=== PATIENT | female | born 1955 | race Caucasian/White ===

== ENCOUNTER → 2016-08-16 | Outpatient (REF) | payer BC, MEDICARE ==
[~2016-08-16] MED LIST: AMLO10TA2 PO; ASPI1TAB PO; ATOR1TAB19 PO; LISI-538 PO; LITH45TASA PO; QUET1TAB8 PO; WOMETAB4 PO
[2016-08-16 13:22] LABS: ALBUMIN 3.8 GM/DL (3.2-5.2); ALBUMIN/GLOBULIN RATIO 1.03 (1.00-1.93); ALKALINE PHOSPHATASE 101 U/L (45-117); ALT/SGPT 16 U/L (12-78); ANION GAP 8 MEQ/L (8-16); AST/SGOT 12 U/L (15-37); BILIRUBIN,TOTAL 0.3 MG/DL (0.2-1.0); BLOOD UREA NITROGEN 8 MG/DL (7-18); CALCIUM LEVEL 9.8 MG/DL (8.8-10.2); CARBON DIOXIDE LEVEL 28 MEQ/L (21-32); CHLORIDE LEVEL 104 MEQ/L (98-107); CREATININE FOR GFR 0.88 MG/DL (0.55-1.02); GLOMERULAR FILTRATION RATE > 60.0 (>45); GLUCOSE, FASTING 110 MG/DL (80-110); MAGNESIUM LEVEL 2.1 MG/DL (1.8-2.4); SODIUM LEVEL 140 MEQ/L (136-145); TOTAL PROTEIN 7.5 GM/DL (6.4-8.2)
[2016-08-16 14:10] LABS: LITHIUM LEVEL 1.02 MEQ/L (0.60-1.20)
== END ==
LOC: M LABDRWAD 12:07
PROVIDERS: ATTEND Psychiatry & Neurology Psychiatry
DX: Z51.81 Encounter for therapeutic drug level monitoring (principal); Z79.899 Other long term (current) drug therapy
CPT/HCPCS: 80053; 80061; 80178; 82306; 83735; 84443; G0463

== ENCOUNTER → 2016-08-16 | Outpatient (REF) | payer MEDICARE, BC ==
[2016-08-16 13:29] LABS: ALBUMIN 3.8 GM/DL (3.2-5.2); ALBUMIN/GLOBULIN RATIO 1.06 (1.00-1.93); ALKALINE PHOSPHATASE 101 U/L (45-117); ALT/SGPT 16 U/L (12-78); ANION GAP 5 MEQ/L (8-16); AST/SGOT 10 U/L (15-37); BILIRUBIN,TOTAL 0.3 MG/DL (0.2-1.0); BLOOD UREA NITROGEN 8 MG/DL (7-18); CALCIUM LEVEL 9.9 MG/DL (8.8-10.2); CARBON DIOXIDE LEVEL 28 MEQ/L (21-32); CHLORIDE LEVEL 106 MEQ/L (98-107); CHOLESTEROL LEVEL 239 MG/DL (<200); CREATININE FOR GFR 0.89 MG/DL (0.55-1.02); GLOMERULAR FILTRATION RATE > 60.0 (>45); GLUCOSE, FASTING 103 MG/DL (80-110); POTASSIUM SERUM 4.8 MEQ/L (3.5-5.1); SODIUM LEVEL 139 MEQ/L (136-145); TOTAL PROTEIN 7.4 GM/DL (6.4-8.2); TRIGLYCERIDES LEVEL 212 MG/DL (<150)
== END ==
LOC: M SFHCADAM 08:34
PROVIDERS: ATTEND Physician Assistant Medical
DX: E78.2 Mixed hyperlipidemia (principal); E55.9 Vitamin D deficiency, unspecified

== ENCOUNTER → 2017-06-12 | Outpatient (CLI) | payer BC, MEDICARE | LOC: M WHC 08:53 | DX: Z12.31 Encounter for screening mammogram for malignant neoplasm of breast (principal); Z13.820 Encounter for screening for osteoporosis; M85.80 Other specified disorders of bone density and structure, unspecified site; M81.0 Age-related osteoporosis without current pathological fracture; Z78.0 Asymptomatic menopausal state ==

== ENCOUNTER → 2017-06-13 | Outpatient (REF) | payer BC, MEDICARE ==
[2017-06-13 12:48] LABS: BASO # 0.1 10^3/uL (0.0-0.2); BASO % 1.1 % (0.0-1.0); EOS # 0.2 10^3/uL (0.0-0.50); EOS % 3.6 % (0.0-3.0); HEMATOCRIT 40.6 % (36.0-47.0); HEMOGLOBIN 12.5 g/dl (12.0-16.0); IMMATURE GRANULOCYTE % 0.2 % (0-3.0); LYMPH # 1.9 10^3/uL (1.5-4.5); LYMPH % 29.3 % (24.0-44.0); MEAN CORPUSCULAR HEMOGLOBIN 31.1 pg (27.0-33.0); MEAN CORPUSCULAR HGB CONC 30.8 g/dl (32.0-36.5); MONO # 0.4 10^3/uL (0.0-0.8); MONO % 6.5 % (0.0-5.0); NEUTROPHILS # 3.9 10^3/uL (1.8-7.7); NEUTROPHILS % 59.3 % (36.0-66.0); PLATELET COUNT, AUTOMATED 317 10^3/uL (150-450); RED BLOOD COUNT 4.02 10^6/uL (4.00-5.40); RED CELL DISTRIBUTION WIDTH 12.7 % (11.5-14.5); WHITE BLOOD COUNT 6.6 10^3/uL (4.0-10.0)
[2017-06-13 13:04] LABS: TOTAL 25(OH) VITAMIN D 35.7 NG/ML (30.0-100.0)
[2017-06-13 13:16] LABS: ALBUMIN 4.2 GM/DL (3.2-5.2); ALBUMIN/GLOBULIN RATIO 1.17 (1.00-1.93); ALKALINE PHOSPHATASE 98 U/L (45-117); ALT/SGPT 23 U/L (12-78); ANION GAP 5 MEQ/L (8-16); AST/SGOT 13 U/L (7-37); BILIRUBIN,TOTAL 0.3 MG/DL (0.2-1.0); BLOOD UREA NITROGEN 12 MG/DL (7-18); CALCIUM LEVEL 9.7 MG/DL (8.8-10.2); CARBON DIOXIDE LEVEL 30 MEQ/L (21-32); CHLORIDE LEVEL 109 MEQ/L (98-107); CHOLESTEROL LEVEL 253 MG/DL (<200); CHOLESTEROL RISK RATIO 4.438 (<5); CREATININE FOR GFR 0.76 MG/DL (0.55-1.30); GLOMERULAR FILTRATION RATE > 60.0 (>45); GLUCOSE, FASTING 92 MG/DL (70-100); HDL CHOLESTEROL 57 MG/DL (>40); LDL CHOLESTEROL 142.6 MG/DL (<100); NON-HDL-C 196 MG/DL; POTASSIUM SERUM 3.9 MEQ/L (3.5-5.1); SODIUM LEVEL 144 MEQ/L (136-145); TOTAL PROTEIN 7.8 GM/DL (6.4-8.2); TRIGLYCERIDES LEVEL 267 MG/DL (<150)
[2017-06-13 13:24] LABS: LITHIUM LEVEL 0.92 MEQ/L (0.60-1.20)
== END ==
LOC: M SFHCADAM 08:02
DX: E55.9 Vitamin D deficiency, unspecified (principal); M81.0 Age-related osteoporosis without current pathological fracture; E78.2 Mixed hyperlipidemia; F31.9 Bipolar disorder, unspecified
CPT/HCPCS: 80178

== ENCOUNTER → 2017-12-02 | Outpatient (CLI) | payer BC, MEDICARE | LOC: M ADAMS 14:45 | DX: M81.0 Age-related osteoporosis without current pathological fracture (principal) | CPT/HCPCS: 36415 ==

== ENCOUNTER → 2017-12-02 | Outpatient (REF) | payer BC, MEDICARE ==
[2017-12-02 19:44] LABS: ANION GAP 8 MEQ/L (8-16); BLOOD UREA NITROGEN 8 MG/DL (7-18); CALCIUM LEVEL 9.1 MG/DL (8.8-10.2); CARBON DIOXIDE LEVEL 26 MEQ/L (21-32); CHLORIDE LEVEL 107 MEQ/L (98-107); CREATININE FOR GFR 0.94 MG/DL (0.55-1.30); GLOMERULAR FILTRATION RATE > 60.0 (>45); GLUCOSE, FASTING 97 MG/DL (70-100); POTASSIUM SERUM 4.2 MEQ/L (3.5-5.1); SODIUM LEVEL 141 MEQ/L (136-145)
== END ==
LOC: M LAB REF 19:15
DX: M81.0 Age-related osteoporosis without current pathological fracture (principal)

== ENCOUNTER 2017-12-09 12:50 | Outpatient (CLI) | payer BC, MEDICARE ==
[2017-12-09] MEDS: ZOLEDRONIC ACID 5 MG in APPROPRIATE DILUENT 1 EA IV (13:31)
== END 2017-12-09 14:20 | disposition home or self-care (01) ==
LOC: M INFU 12:50
DX: M81.0 Age-related osteoporosis without current pathological fracture (principal); Z88.2 Allergy status to sulfonamides; Z88.1 Allergy status to other antibiotic agents; Z79.899 Other long term (current) drug therapy; Z79.82 Long term (current) use of aspirin
CPT/HCPCS: J3489

== ENCOUNTER → 2018-01-25 | Outpatient (CLI) | payer BC, MEDICARE ==
[2018-01-25 17:49] LABS: ANION GAP 4 MEQ/L (8-16); BLOOD UREA NITROGEN 8 MG/DL (7-18); CALCIUM LEVEL 9.4 MG/DL (8.8-10.2); CARBON DIOXIDE LEVEL 29 MEQ/L (21-32); CHLORIDE LEVEL 109 MEQ/L (98-107); CREATININE FOR GFR 0.85 MG/DL (0.55-1.30); GLOMERULAR FILTRATION RATE > 60.0 (>45); GLUCOSE, FASTING 111 MG/DL (70-100); POTASSIUM SERUM 4.3 MEQ/L (3.5-5.1); SODIUM LEVEL 142 MEQ/L (136-145)
== END ==
LOC: M ADAMS 11:24
DX: M81.0 Age-related osteoporosis without current pathological fracture (principal)
CPT/HCPCS: 80048

== ENCOUNTER → 2018-03-22 | Outpatient (CLI) | payer BC, MEDICARE ==
[2018-03-22 17:46] LABS: ESTIMATED AVERAGE GLUCOSE 88 MG/DL (60-110); HEMOGLOBIN A1c 4.7 %
[2018-03-22 17:51] LABS: ALBUMIN/GLOBULIN RATIO 1.05 (1.00-1.93); ALKALINE PHOSPHATASE 72 U/L (45-117); ALT/SGPT 18 U/L (12-78); ANION GAP 5 MEQ/L (8-16); AST/SGOT 12 U/L (7-37); BILIRUBIN,TOTAL 0.3 MG/DL (0.2-1.0); BLOOD UREA NITROGEN 9 MG/DL (7-18); CALCIUM LEVEL 9.7 MG/DL (8.8-10.2); CARBON DIOXIDE LEVEL 30 MEQ/L (21-32); CHLORIDE LEVEL 105 MEQ/L (98-107); CHOLESTEROL LEVEL 219 MG/DL (<200); CHOLESTEROL RISK RATIO 3.842 (<5); CREATININE FOR GFR 0.72 MG/DL (0.55-1.30); GLOMERULAR FILTRATION RATE > 60.0 (>45); GLUCOSE, FASTING 93 MG/DL (70-100); HDL CHOLESTEROL 57 MG/DL (>40); LDL CHOLESTEROL 116 MG/DL (<100); LITHIUM LEVEL 0.91 MEQ/L (0.60-1.20); NON-HDL-C 162 MG/DL; POTASSIUM SERUM 3.6 MEQ/L (3.5-5.1); SODIUM LEVEL 140 MEQ/L (136-145); TOTAL PROTEIN 7.8 GM/DL (6.4-8.2); TRIGLYCERIDES LEVEL 230 MG/DL (<150)
== END ==
LOC: M ADAMS 12:53
DX: Z79.899 Other long term (current) drug therapy (principal)
CPT/HCPCS: 80178

== ENCOUNTER → 2019-01-10 | Outpatient (CLI) | payer BC, MEDICARE ==
[~2019-01-10] MED LIST changes: -AMLO10TA2 PO; +AMLO10TA5 PO; -ASPI1TAB PO; +ASPI81TA26 PO
== END ==
LOC: M ADAMS 11:22
PROVIDERS: ATTEND Physician Assistant Medical
DX: E78.2 Mixed hyperlipidemia (principal); E55.9 Vitamin D deficiency, unspecified; F17.200 Nicotine dependence, unspecified, uncomplicated; I10 Essential (primary) hypertension

== ENCOUNTER → 2019-01-10 | Outpatient (REF) | payer BC, MEDICARE ==
[2019-01-10 17:16] LABS: BASO # 0.1 10^3/uL (0.0-0.2); BASO % 0.9 % (0.0-1.0); EOS # 0.2 10^3/uL (0.0-0.5); EOS % 3.3 % (0.0-3.0); HEMATOCRIT 39.3 % (36.0-47.0); LYMPH # 2.9 10^3/uL (1.5-5.0); LYMPH % 41.6 % (24.0-44.0); MEAN CORPUSCULAR HEMOGLOBIN 31.7 pg (27.0-33.0); MEAN CORPUSCULAR HGB CONC 30.5 g/dl (32.0-36.5); MEAN CORPUSCULAR VOLUME 103.7 fl (80.0-96.0); MONO # 0.6 10^3/uL (0.0-0.8); MONO % 8.8 % (0.0-5.0); NEUTROPHILS # 3.1 10^3/uL (1.5-8.5); NEUTROPHILS % 45.1 % (36.0-66.0); PLATELET COUNT, AUTOMATED 325 10^3/uL (150-450); RED BLOOD COUNT 3.79 10^6/uL (4.00-5.40)
[2019-01-10 17:23] LABS: ALBUMIN 3.7 GM/DL (3.2-5.2); ALT/SGPT 25 U/L (12-78); BILIRUBIN,TOTAL 0.3 MG/DL (0.2-1.0); BLOOD UREA NITROGEN 8 MG/DL (7-18); CALCIUM LEVEL 9.7 MG/DL (8.8-10.2); CARBON DIOXIDE LEVEL 27 MEQ/L (21-32); CHLORIDE LEVEL 108 MEQ/L (98-107); CHOLESTEROL LEVEL 213 MG/DL (<200); GLOMERULAR FILTRATION RATE > 60.0 (>45); GLUCOSE, FASTING 87 MG/DL (70-100); HDL CHOLESTEROL 59 MG/DL (>40); LDL CHOLESTEROL 106 MG/DL (<100); NON-HDL-C 154 MG/DL; POTASSIUM SERUM 4.3 MEQ/L (3.5-5.1); SODIUM LEVEL 142 MEQ/L (136-145); TOTAL PROTEIN 7.4 GM/DL (6.4-8.2); TRIGLYCERIDES LEVEL 239 MG/DL (<150)
[2019-01-12 09:49] LABS: TOTAL 25(OH) VITAMIN D 40.2 NG/ML (30.0-100.0)
== END ==
LOC: M SFHCADAM 11:03
PROVIDERS: ATTEND Physician Assistant Medical
DX: E55.9 Vitamin D deficiency, unspecified (principal); F17.200 Nicotine dependence, unspecified, uncomplicated; I10 Essential (primary) hypertension; E78.2 Mixed hyperlipidemia

== ENCOUNTER → 2019-02-03 | Outpatient (REF) | payer BC, MEDICARE ==
[2019-02-03 20:00] LABS: BLOOD UREA NITROGEN 9 MG/DL (7-18); CALCIUM LEVEL 9.9 MG/DL (8.8-10.2); CARBON DIOXIDE LEVEL 29 MEQ/L (21-32); CHLORIDE LEVEL 103 MEQ/L (98-107); CREATININE FOR GFR 0.85 MG/DL (0.55-1.30); GLOMERULAR FILTRATION RATE > 60.0 (>45); GLUCOSE, FASTING 89 MG/DL (70-100); POTASSIUM SERUM 4.1 MEQ/L (3.5-5.1); SODIUM LEVEL 136 MEQ/L (136-145)
== END ==
LOC: M LABDRAWC 19:11
PROVIDERS: ATTEND Nurse Practitioner Family
DX: M81.0 Age-related osteoporosis without current pathological fracture (principal)

== ENCOUNTER 2019-02-09 14:56 | Outpatient (CLI) | payer BC, MEDICARE ==
[~2019-02-09] VITALS: Ht 152.4 cm; Wt 54.0 kg
[2019-02-09 15:00] VITALS: BP 146/74
[2019-02-09] MEDS ORDERED: CALC500T25 PO (15:44)
[2019-02-09] MEDS ORDERED: ZOLEDRONIC ACID 5 MG OVER 15 MINUTES IV ONE ×2 (16:00)
[2019-02-09 16:20] VITALS: BP 140/73
== END 2019-02-09 16:20 | disposition home or self-care (01) ==
LOC: M INFU 14:56
PROVIDERS: ATTEND Internal Medicine Endocrinology, Diabetes & Metabolism
DX: M81.0 Age-related osteoporosis without current pathological fracture (principal)
CPT/HCPCS: 96365; J3489

== ENCOUNTER → 2019-04-04 | Outpatient (CLI) | payer BC, MEDICARE ==
[~2019-04-04] MED LIST changes: +CALC500T25 PO
== END ==
LOC: M ADAMS 11:54
PROVIDERS: ATTEND Physician Assistant Medical
DX: F31.30 Bipolar disorder, current episode depressed, mild or moderate severity, unspecified (principal)

== ENCOUNTER 2019-06-23 13:39 | Emergency (ER) | payer BC, MEDICARE ==
[~2019-06-23] VITALS: Ht 152.4 cm; Wt 53.2 kg
[~2019-06-23 13:39] MED LIST changes: +QUET100T2 PO; -QUET1TAB8 PO
[2019-06-23] MEDS ORDERED: ATOR1TAB21 (13:49)
[2019-06-23] MEDS ORDERED: ALEN70TA74 (13:49)
[2019-06-23] MEDS ORDERED: fish oil (13:49)
--- NOTE | 2019-06-23 15:44 | REPVR ---
PROCEDURE INFORMATION: Exam: CT Head Without Contrast Exam date and time: 06/23/2019 3:26 PM Age: 64 years old Clinical indication: Injury or trauma; Fall; Initial encounter; Blunt trauma (contusions or hematomas); Additional info: Fall injury; Headache TECHNIQUE: Imaging protocol: Computed tomography of the head without contrast. Radiation optimization: All CT scans at this facility use at least one of these dose optimization techniques: automated exposure control; mA and/or kV adjustment per patient size (includes targeted exams where dose is matched to clinical indication); or iterative reconstruction. COMPARISON: CT Head without contrast 01/07/2014 1:51 PM FINDINGS: Brain: No intracranial mass, mass effect or midline shift. No acute intracranial hemorrhage. No CT evidence of acute cortical infarct. Mild decreased attenuation in periventricular/centrum semiovale white matter. Ventricles: Ventricles, cisterns, and sulci are normal in size for age. Bones/joints: No calvarial fracture or destructive process. Sinuses: Imaged paranasal sinuses are clear. Mastoid air cells: Mastoid air cells are normally aerated. Orbits: Imaged orbits are unremarkable. Soft tissues: No focal extracranial soft tissue swelling. IMPRESSION: No acute or concerning focal intracranial abnormality. Electronically signed by: Lavelle Coto On 06/23/2019 15:43:56 PM
--- NOTE | 2019-06-23 15:54 | REPVR ---
PROCEDURE INFORMATION: Exam: CT Cervical Spine Without Contrast Exam date and time: 06/23/2019 3:26 PM Age: 64 years old Clinical indication: Injury or trauma; Fall; Initial encounter; Blunt trauma; Additional info: Fall injury; Distracting injury; [facility] + TECHNIQUE: Imaging protocol: Computed tomography images of the cervical spine without contrast. Radiation optimization: All CT scans at this facility use at least one of these dose optimization techniques: automated exposure control; mA and/or kV adjustment per patient size (includes targeted exams where dose is matched to clinical indication); or iterative reconstruction. COMPARISON: No relevant prior studies available. FINDINGS: Vertebrae: No segmental vertebral malalignment. Vertebral body height is maintained at all levels. No acute fracture. No destructive or blastic cervical spine osseous lesion. Discs/Spinal canal/Neural foramina: Intervertebral disc spaces are appropriate for age. Hypertrophic facet arthropathy left C3-C4 with mild neural foraminal stenosis Soft tissues: Soft tissues show no concerning abnormality or asymmetry. Thyroid: Incompletely imaged right thyroid nodule suspected, measuring 15 mm Lungs: Imaged lung apices demonstrate no concerning abnormality. Pleural space: No apical pneumothorax. IMPRESSION: 1. No acute fracture or traumatic segmental cervical malalignment. 2. Mild left neural foraminal stenosis C3-C4 secondary to facet arthropathy. 3. Probable left thyroid nodule, incompletely imaged. Outpatient sonography can be used to follow this. COMMENTS: Consistent with the [employer]'s Incidental Findings Committee white paper (J Am Mihai Radiol 2015): In patients aged 35 years and older with an incidental thyroid nodule equal to or greater than 1.[address], MRI or extrathyroidal US, further evaluation with dedicated thyroid US is recommended for patients with normal life expectancy and without comorbidities. For smaller nodules without suspicious features, no further evaluation or follow up is recommended. Electronically signed by: Lavelle Coto On 06/23/2019 15:54:34 PM
[2019-06-23] MEDS ORDERED: NS 1,000 ML IV ONE ×2 (17:15)
[2019-06-23 17:50] LABS: BASO # 0.1 10^3/uL (0.0-0.2); BASO % 0.5 % (0.0-1.0); EOS # 0.2 10^3/uL (0.0-0.5); EOS % 1.8 % (0.0-3.0); HEMATOCRIT 37.9 % (36.0-47.0); HEMOGLOBIN 12.2 g/dl (12.0-15.5); LYMPH # 2.6 10^3/uL (1.5-5.0); LYMPH % 22.9 % (24.0-44.0); MEAN CORPUSCULAR HEMOGLOBIN 32.1 pg (27.0-33.0); MEAN CORPUSCULAR HGB CONC 32.2 g/dl (32.0-36.5); MEAN CORPUSCULAR VOLUME 99.7 fl (80.0-96.0); MONO # 0.9 10^3/uL (0.0-0.8); MONO % 8.2 % (0.0-5.0); NEUTROPHILS # 7.4 10^3/uL (1.5-8.5); NEUTROPHILS % 66.2 % (36.0-66.0); PLATELET COUNT, AUTOMATED 357 10^3/uL (150-450); WHITE BLOOD COUNT 11.2 10^3/uL (4.0-10.0)
[2019-06-23 18:28] LABS: ALT/SGPT 31 U/L (12-78); BILIRUBIN,DIRECT < 0.1 MG/DL (0.0-0.2); BILIRUBIN,TOTAL 0.2 MG/DL (0.2-1.0); FREE T4 0.85 NG/DL (0.76-1.46)
[2019-06-23 20:40] LABS: CALCIUM LEVEL 10.1 MG/DL (8.8-10.2); CREATININE FOR GFR 1.26 MG/DL (0.55-1.30); GLOMERULAR FILTRATION RATE 45.2 (>45); LITHIUM LEVEL 0.98 MEQ/L (0.60-1.20); POTASSIUM SERUM 3.8 MEQ/L (3.5-5.1)
[2019-06-23 20:48] VITALS: BP 149/72
--- NOTE | 2019-06-24 10:50 | ED PDOC ---
Post-Departure Follow-Up adriano thomason faxed formal report of ct c spine for fu Clara Zhang MD Jun 24, 2019 10:50
--- NOTE | 2019-06-25 06:35 | ECGEPIP ---
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
== END 2019-06-23 20:58 | disposition home or self-care (01) ==
LOC: M ED 13:39
DX: R79.89 Other specified abnormal findings of blood chemistry (principal); E86.0 Dehydration; I10 Essential (primary) hypertension; F31.9 Bipolar disorder, unspecified; Z79.899 Other long term (current) drug therapy; Z79.82 Long term (current) use of aspirin; Z88.1 Allergy status to other antibiotic agents; Z88.2 Allergy status to sulfonamides; Z88.5 Allergy status to narcotic agent; F17.210 Nicotine dependence, cigarettes, uncomplicated

== ENCOUNTER → 2019-06-24 | Outpatient (REF) | payer BC, MEDICARE ==
[~2019-06-24] MED LIST changes: +ALEN70TA74; +ATOR1TAB21; +fish oil
[2019-06-24 13:33] LABS: CALCIUM LEVEL 11.5 MG/DL (8.8-10.2); CREATININE FOR GFR 1.42 MG/DL (0.55-1.30); GLOMERULAR FILTRATION RATE 39.4 (>45); LITHIUM LEVEL 0.81 MEQ/L (0.60-1.20); POTASSIUM SERUM 4.2 MEQ/L (3.5-5.1)
== END ==
LOC: M LABDRWAD 12:41
PROVIDERS: ATTEND Emergency Medicine
DX: Z79.899 Other long term (current) drug therapy (principal)

== ENCOUNTER → 2019-07-02 | Outpatient (REF) | payer BC, MEDICARE ==
[2019-07-02 16:36] LABS: CALCIUM LEVEL 11.2 MG/DL (8.8-10.2); CREATININE FOR GFR 1.25 MG/DL (0.55-1.30); GLOMERULAR FILTRATION RATE 45.6 (>45); POTASSIUM SERUM 4.6 MEQ/L (3.5-5.1)
== END ==
LOC: M SFHCADAM 14:19
PROVIDERS: ATTEND Physician Assistant Medical
DX: E83.52 Hypercalcemia (principal); N17.9 Acute kidney failure, unspecified

== ENCOUNTER → 2019-10-16 | Outpatient (REF) | payer BC, MEDICARE ==
[2019-10-16 14:19] LABS: BASO # 0.1 10^3/uL (0.0-0.2); BASO % 0.7 % (0.0-1.0); EOS # 0.2 10^3/uL (0.0-0.5); EOS % 2.2 % (0.0-3.0); HEMATOCRIT 37.8 % (36.0-47.0); HEMOGLOBIN 11.8 g/dl (12.0-15.5); LYMPH # 2.5 10^3/uL (1.5-5.0); LYMPH % 30.9 % (24.0-44.0); MEAN CORPUSCULAR HEMOGLOBIN 31.3 pg (27.0-33.0); MEAN CORPUSCULAR HGB CONC 31.2 g/dl (32.0-36.5); MEAN CORPUSCULAR VOLUME 100.3 fl (80.0-96.0); MONO # 0.6 10^3/uL (0.0-0.8); MONO % 7.7 % (0.0-5.0); NEUTROPHILS # 4.8 10^3/uL (1.5-8.5); NEUTROPHILS % 58.3 % (36.0-66.0); PLATELET COUNT, AUTOMATED 325 10^3/uL (150-450); RED BLOOD COUNT 3.77 10^6/uL (4.00-5.40); WHITE BLOOD COUNT 8.2 10^3/uL (4.0-10.0)
[2019-10-16 14:30] LABS: ALBUMIN 3.7 GM/DL (3.2-5.2); ALT/SGPT 17 U/L (12-78); BILIRUBIN,TOTAL 0.2 MG/DL (0.2-1.0); BLOOD UREA NITROGEN 12 MG/DL (7-18); CALCIUM LEVEL 10.1 MG/DL (8.8-10.2); CARBON DIOXIDE LEVEL 30 MEQ/L (21-32); CHLORIDE LEVEL 106 MEQ/L (98-107); CHOLESTEROL LEVEL 211 MG/DL (<200); CHOLESTEROL RISK RATIO 3.907 (<5); CREATININE FOR GFR 0.94 MG/DL (0.55-1.30); FREE T4 0.88 NG/DL (0.76-1.46); GLOMERULAR FILTRATION RATE > 60.0 (>45); GLUCOSE, FASTING 89 MG/DL (70-100); HDL CHOLESTEROL 54 MG/DL (>40); LDL CHOLESTEROL 125 MG/DL (<100); NON-HDL-C 157 MG/DL; POTASSIUM SERUM 4.5 MEQ/L (3.5-5.1); SODIUM LEVEL 137 MEQ/L (136-145); TOTAL PROTEIN 7.5 GM/DL (6.4-8.2); TRIGLYCERIDES LEVEL 161 MG/DL (<150)
[2019-10-16 14:32] LABS: TOTAL 25(OH) VITAMIN D 55.1 NG/ML (30.0-100.0)
== END ==
LOC: M SFHCADAM 09:42
PROVIDERS: ATTEND Physician Assistant Medical
DX: E55.9 Vitamin D deficiency, unspecified (principal); E78.2 Mixed hyperlipidemia; E04.1 Nontoxic single thyroid nodule; E83.52 Hypercalcemia

== ENCOUNTER → 2019-10-28 | Outpatient (CLI) | payer BC, MEDICARE ==
[~2019-10-28] MED LIST changes: -AMLO10TA5 PO; +AMLO1TAB25 PO
--- NOTE | 2019-10-28 15:45 | REP ---
THYROID ULTRASOUND: Real-time sonographic evaluation of the thyroid performed. The right lobe measures 4.4 x 1.6 x 1.7 cm and left lobe 5.0 x 1.5 x 1.0 cm. Inferiorly in the right lobe, there is a complex cystic and solid nodule, which measures 2.0 x 1.5 x 1.7 cm. Using ACR TI-RADS criteria, this has a benign appearance and no followup is needed. No other cystic or solid nodule is seen. IMPRESSION: Benign cystic and solid nodule right lobe of the thyroid.
== END ==
LOC: M PLAIMG 10:32
PROVIDERS: ATTEND Physician Assistant Medical
DX: E04.1 Nontoxic single thyroid nodule (principal)

== ENCOUNTER → 2020-09-05 | Outpatient (REF) | payer BC, MEDICARE ==
[~2020-09-05] MED LIST changes: -ALEN70TA74; +ALEN70TA82; -LISI-538 PO; +LISI20TA33 PO
[2020-09-05 12:43] LABS: BASO # 0.1 10^3/uL (0.0-0.2); BASO % 0.6 % (0.0-1.0); EOS # 0.4 10^3/uL (0.0-0.5); HEMATOCRIT 39.1 % (36.0-47.0); HEMOGLOBIN 11.7 g/dl (12.0-15.5); LYMPH # 2.5 10^3/uL (1.5-5.0); MEAN CORPUSCULAR HEMOGLOBIN 30.7 pg (27.0-33.0); MEAN CORPUSCULAR HGB CONC 29.9 g/dl (32.0-36.5); MEAN CORPUSCULAR VOLUME 102.6 fl (80.0-96.0); MONO # 0.5 10^3/uL (0.0-0.8); MONO % 5.7 % (2.0-8.0); NEUTROPHILS # 5.8 10^3/uL (1.5-8.5); NEUTROPHILS % 62.4 % (36.0-66.0); PLATELET COUNT, AUTOMATED 414 10^3/uL (150-450); RED BLOOD COUNT 3.81 10^6/uL (4.00-5.40); WHITE BLOOD COUNT 9.4 10^3/uL (4.0-10.0)
[2020-09-05 13:24] LABS: ALBUMIN 3.2 GM/DL (3.2-5.2); ALT/SGPT 35 U/L (12-78); BILIRUBIN,TOTAL 0.2 MG/DL (0.2-1.0); BLOOD UREA NITROGEN 8 MG/DL (7-18); CALCIUM LEVEL 10.8 MG/DL (8.8-10.2); CARBON DIOXIDE LEVEL 29 MEQ/L (21-32); CHLORIDE LEVEL 109 MEQ/L (98-107); CHOLESTEROL LEVEL 156 MG/DL (<200); CHOLESTEROL RISK RATIO 2.836 (<5); CREATININE FOR GFR 0.92 MG/DL (0.55-1.30); GLOMERULAR FILTRATION RATE > 60.0 (>45); GLUCOSE, FASTING 110 MG/DL (70-100); HDL CHOLESTEROL 55 MG/DL (>40); LDL CHOLESTEROL 61 MG/DL (<100); NON-HDL-C 101 MG/DL; POTASSIUM SERUM 4.8 MEQ/L (3.5-5.1); SODIUM LEVEL 143 MEQ/L (136-145); THYROID STIMULATING HORMONE 0.044 uIU/ML (0.358-3.740); TRIGLYCERIDES LEVEL 200 MG/DL (<150)
== END ==
LOC: M SFHCADAM 08:57
PROVIDERS: ATTEND Physician Assistant Medical
DX: M81.0 Age-related osteoporosis without current pathological fracture (principal); I10 Essential (primary) hypertension; F17.200 Nicotine dependence, unspecified, uncomplicated; F31.9 Bipolar disorder, unspecified; E78.2 Mixed hyperlipidemia

== ENCOUNTER → 2020-09-05 | Outpatient (REF) | payer BC, MEDICARE ==
[2020-09-05 12:49] LABS: HEMOGLOBIN 11.8 g/dl (12.0-15.5); MEAN CORPUSCULAR HGB CONC 30.3 g/dl (32.0-36.5); MEAN CORPUSCULAR VOLUME 102.4 fl (80.0-96.0); PLATELET COUNT, AUTOMATED 402 10^3/uL (150-450); RED BLOOD COUNT 3.81 10^6/uL (4.00-5.40); WHITE BLOOD COUNT 9.5 10^3/uL (4.0-10.0)
[2020-09-05 13:22] LABS: ALBUMIN 3.2 GM/DL (3.2-5.2); ALT/SGPT 35 U/L (12-78); BILIRUBIN,TOTAL 0.3 MG/DL (0.2-1.0); BLOOD UREA NITROGEN 7 MG/DL (7-18); CALCIUM LEVEL 10.8 MG/DL (8.8-10.2); CARBON DIOXIDE LEVEL 32 MEQ/L (21-32); CHLORIDE LEVEL 109 MEQ/L (98-107); CHOLESTEROL LEVEL 157 MG/DL (<200); CHOLESTEROL RISK RATIO 2.754 (<5); CREATININE FOR GFR 0.88 MG/DL (0.55-1.30); GLOMERULAR FILTRATION RATE > 60.0 (>45); GLUCOSE, FASTING 110 MG/DL (70-100); HDL CHOLESTEROL 57 MG/DL (>40); LDL CHOLESTEROL 61 MG/DL (<100); LITHIUM LEVEL 1.27 MEQ/L (0.60-1.20); NON-HDL-C 100 MG/DL; PHOSPHORUS LEVEL 3.8 MG/DL (2.5-4.9); POTASSIUM SERUM 4.8 MEQ/L (3.5-5.1); SODIUM LEVEL 143 MEQ/L (136-145); THYROID STIMULATING HORMONE 0.045 uIU/ML (0.358-3.740); TOTAL PROTEIN 7.1 GM/DL (6.4-8.2); TRIGLYCERIDES LEVEL 196 MG/DL (<150)
== END ==
LOC: M LABDRWAD 12:30
PROVIDERS: ATTEND Nurse Practitioner Psychiatric/Mental Health
DX: F31.30 Bipolar disorder, current episode depressed, mild or moderate severity, unspecified (principal)

== ENCOUNTER → 2020-09-08 | Outpatient (REF) | payer BC, MEDICARE ==
[2020-09-08 12:47] LABS: PERCENT SATURATION 16.2 % (13.2-45.0)
[2020-09-08 13:21] LABS: PTH INTACT 78.4 PG/ML (18.5-88.0)
[2020-09-08 13:38] LABS: FOLATE 18.8 NG/ML
[2020-09-08 13:59] LABS: HEMOGLOBIN A1c 5.1 %
== END ==
LOC: M SFHCADAM 09:28
PROVIDERS: ATTEND Physician Assistant Medical
DX: E83.52 Hypercalcemia (principal); R73.01 Impaired fasting glucose; D64.9 Anemia, unspecified

== ENCOUNTER → 2020-09-15 | Outpatient (REF) | payer BC, MEDICARE ==
[2020-09-15 13:33] LABS: ALBUMIN 3.3 GM/DL (3.2-5.2); BLOOD UREA NITROGEN 11 MG/DL (7-18); CALCIUM LEVEL 10.8 MG/DL (8.8-10.2); CARBON DIOXIDE LEVEL 33 MEQ/L (21-32); CHLORIDE LEVEL 107 MEQ/L (98-107); GLOMERULAR FILTRATION RATE > 60.0 (>45); GLUCOSE, FASTING 103 MG/DL (70-100); LITHIUM LEVEL 0.96 MEQ/L (0.60-1.20); PHOSPHORUS LEVEL 3.6 MG/DL (2.5-4.9); SODIUM LEVEL 141 MEQ/L (136-145); THYROID STIMULATING HORMONE 0.218 uIU/ML (0.358-3.740)
== END ==
LOC: M SFHCADAM 09:42
PROVIDERS: ATTEND Physician Assistant Medical
DX: T56.891A Toxic effect of other metals, accidental (unintentional), initial encounter (principal); E83.52 Hypercalcemia; R79.89 Other specified abnormal findings of blood chemistry

== ENCOUNTER → 2020-09-30 | Outpatient (REF) | payer BC, MEDICARE ==
[2020-09-30 18:17] LABS: ALBUMIN 3.3 GM/DL (3.2-5.2); ALT/SGPT 26 U/L (12-78); BILIRUBIN,TOTAL 0.2 MG/DL (0.2-1.0); BLOOD UREA NITROGEN 9 MG/DL (7-18); CALCIUM LEVEL 9.5 MG/DL (8.8-10.2); CARBON DIOXIDE LEVEL 27 MEQ/L (21-32); CHLORIDE LEVEL 108 MEQ/L (98-107); CREATININE FOR GFR 0.87 MG/DL (0.55-1.30); GLOMERULAR FILTRATION RATE > 60.0 (>45); GLUCOSE, FASTING 104 MG/DL (70-100); LITHIUM LEVEL 0.73 MEQ/L (0.60-1.20); POTASSIUM SERUM 3.9 MEQ/L (3.5-5.1); SODIUM LEVEL 141 MEQ/L (136-145)
== END ==
LOC: M SFHCADAM 15:01
PROVIDERS: ATTEND Physician Assistant Medical
DX: E83.52 Hypercalcemia (principal)

== ENCOUNTER → 2021-04-06 | Outpatient (REF) | payer BC, MEDICARE ==
[2021-04-06 12:50] LABS: BASO # 0.1 10^3/uL (0.0-0.2); EOS # 0.2 10^3/uL (0.0-0.5); EOS % 2.7 % (0.0-3.0); HEMATOCRIT 39.7 % (36.0-47.0); HEMOGLOBIN 12.2 g/dl (12.0-15.5); LYMPH # 1.8 10^3/uL (1.5-5.0); LYMPH % 29.4 % (24.0-44.0); MEAN CORPUSCULAR HEMOGLOBIN 30.8 pg (27.0-33.0); MEAN CORPUSCULAR HGB CONC 30.7 g/dl (32.0-36.5); MEAN CORPUSCULAR VOLUME 100.3 fl (80.0-96.0); MONO # 0.3 10^3/uL (0.0-0.8); MONO % 5.2 % (2.0-8.0); NEUTROPHILS # 3.8 10^3/uL (1.5-8.5); NEUTROPHILS % 61.7 % (36.0-66.0); PLATELET COUNT, AUTOMATED 372 10^3/uL (150-450); RED BLOOD COUNT 3.96 10^6/uL (4.00-5.40); WHITE BLOOD COUNT 6.2 10^3/uL (4.0-10.0)
[2021-04-06 13:31] LABS: ALBUMIN 3.3 GM/DL (3.2-5.2); BILIRUBIN,TOTAL 0.3 MG/DL (0.2-1.0); CALCIUM LEVEL 9.7 MG/DL (8.8-10.2); CHOLESTEROL RISK RATIO 4.509 (<5); CREATININE FOR GFR 1.04 MG/DL (0.55-1.30); FREE T4 0.7 NG/DL (0.76-1.46); GLOMERULAR FILTRATION RATE 56.1 (>45); LITHIUM LEVEL 0.94 MEQ/L (0.60-1.20); MAGNESIUM LEVEL 2.4 MG/DL (1.8-2.4); PERCENT SATURATION 17.7 % (13.2-45.0); THYROID STIMULATING HORMONE 2.39 uIU/ML (0.358-3.740)
[2021-04-06 14:15] LABS: TOTAL 25(OH) VITAMIN D 40.6 NG/ML (30.0-100.0)
[2021-04-06 14:29] LABS: FOLATE 5.5 NG/ML
== END ==
LOC: M SFHCADAM 08:01
PROVIDERS: ATTEND Physician Assistant Medical
DX: E55.9 Vitamin D deficiency, unspecified (principal); F17.200 Nicotine dependence, unspecified, uncomplicated; I10 Essential (primary) hypertension; E78.2 Mixed hyperlipidemia; R73.01 Impaired fasting glucose

== ENCOUNTER → 2022-01-01 | Outpatient (REF) | payer MEDICARE, BC ==
[2022-01-01 17:50] LABS: BASO # 0.1 10^3/uL (0.0-0.2); BASO % 0.6 % (0.0-1.0); EOS # 0.2 10^3/uL (0.0-0.5); EOS % 1.3 % (0.0-3.0); HEMOGLOBIN 12.1 g/dl (12.0-15.5); LYMPH # 2.4 10^3/uL (1.5-5.0); LYMPH % 21.3 % (24.0-44.0); MEAN CORPUSCULAR HEMOGLOBIN 31.3 pg (27.0-33.0); MEAN CORPUSCULAR VOLUME 100.8 fl (80.0-96.0); MONO # 0.8 10^3/uL (0.0-0.8); MONO % 7.2 % (2.0-8.0); NEUTROPHILS # 7.9 10^3/uL (1.5-8.5); NEUTROPHILS % 69.2 % (36.0-66.0); PLATELET COUNT, AUTOMATED 378 10^3/uL (150-450); RED BLOOD COUNT 3.87 10^6/uL (4.00-5.40); WHITE BLOOD COUNT 11.4 10^3/uL (4.0-10.0)
[2022-01-01 18:57] LABS: ALBUMIN 3.5 GM/DL (3.2-5.2); ALT/SGPT 24 U/L (12-78); BILIRUBIN,TOTAL 0.4 MG/DL (0.2-1.0); BLOOD UREA NITROGEN 8 MG/DL (7-18); CALCIUM LEVEL 10.3 MG/DL (8.8-10.2); CARBON DIOXIDE LEVEL 28 MEQ/L (21-32); CHLORIDE LEVEL 105 MEQ/L (98-107); CHOLESTEROL LEVEL 246 MG/DL (<200); CHOLESTEROL RISK RATIO 4.472 (<5); CREATININE FOR GFR 0.98 MG/DL (0.55-1.30); GLOMERULAR FILTRATION RATE > 60.0 (>45); GLUCOSE, FASTING 102 MG/DL (70-100); HDL CHOLESTEROL 55 MG/DL (>40); LDL CHOLESTEROL 151 MG/DL (<100); NON-HDL-C 191 MG/DL; POTASSIUM SERUM 4.2 MEQ/L (3.5-5.1); SODIUM LEVEL 138 MEQ/L (136-145); TOTAL PROTEIN 7.3 GM/DL (6.4-8.2); TRIGLYCERIDES LEVEL 202 MG/DL (<150)
[2022-01-01 19:34] LABS: TOTAL 25(OH) VITAMIN D 51.1 NG/ML (30.0-100.0)
[2022-01-01 20:05] LABS: LITHIUM LEVEL 0.87 MEQ/L (0.60-1.20)
== END ==
LOC: M SFHCADAM 13:54
PROVIDERS: ATTEND Physician Assistant Medical
DX: E78.2 Mixed hyperlipidemia (principal); I10 Essential (primary) hypertension; E55.9 Vitamin D deficiency, unspecified; R73.01 Impaired fasting glucose; M81.0 Age-related osteoporosis without current pathological fracture; F31.9 Bipolar disorder, unspecified

== ENCOUNTER → 2022-01-01 | Outpatient (CLI) | payer MEDICARE, BC | LOC: M ADAMS 14:00 | PROVIDERS: ATTEND Physician Assistant Medical | DX: R91.8 Other nonspecific abnormal finding of lung field (principal); R06.09 Other forms of dyspnea; F17.200 Nicotine dependence, unspecified, uncomplicated ==

== ENCOUNTER → 2022-01-10 | Outpatient (CLI) | payer BC, MEDICARE ==
[~2022-01-10] MED LIST changes: +ISOVUE-370 76% 100ML VIAL As Ordered ONE
== END ==
LOC: M RAD 09:19
PROVIDERS: ATTEND Physician Assistant Medical
DX: J98.11 Atelectasis (principal); R91.8 Other nonspecific abnormal finding of lung field; J43.9 Emphysema, unspecified; R93.89 Abnormal findings on diagnostic imaging of other specified body structures; F17.200 Nicotine dependence, unspecified, uncomplicated

== ENCOUNTER → 2022-01-25 | Outpatient (CLI) | payer BC, MEDICARE ==
[~2022-01-25] MED LIST changes: +ALBU8.5H INH; -ISOVUE-370 76% 100ML VIAL As Ordered ONE; +OMEG10002 PO; +STIO1AER INH
[2022-01-25 13:45] LABS: INR 0.81; PROTHROMBIN TIME 11.6 SECONDS (12.7-14.5)
== END ==
LOC: M CARPUL 11:44
PROVIDERS: ATTEND Internal Medicine Critical Care Medicine
DX: J43.9 Emphysema, unspecified (principal); R06.09 Other forms of dyspnea

== ENCOUNTER → 2022-01-29 | Outpatient (CLI) | payer BC, MEDICARE | LOC: M LABSMTC 11:23 | PROVIDERS: ATTEND Anesthesiology | DX: Z01.812 Encounter for preprocedural laboratory examination (principal); Z20.822 Contact with and (suspected) exposure to COVID-19 ==

== ENCOUNTER 2022-01-31 06:37 | Day surgery (SDC) | payer BC, MEDICARE ==
[~2022-01-31] VITALS: Ht 152.4 cm; Wt 53.5 kg
[2022-01-31] MEDS ORDERED: LR 1,000 ML IV SCH ×2 (07:25→10:40)
[2022-01-31] MEDS ORDERED: dexameTHASONE 4 MG/ML 1ML VIAL (J1100 PER 1MG) As Ordered ONE ×2 (08:50→10:21)
[2022-01-31] MEDS ORDERED: propofoL 200 MG/20 ML VIAL As Ordered ONE (08:50)
[2022-01-31] MEDS ORDERED: ROCURONIUM BROMIDE 50 MG/5 ML VIAL As Ordered ONE (08:50)
[2022-01-31] MEDS ORDERED: ONDANSETRON 4MG 2ML VIAL As Ordered ONE (08:50)
[2022-01-31] MEDS ORDERED: LIDOCAINE 2% 100MG/5ML SDV (FOR ANES.) As Ordered ONE (08:50)
[2022-01-31] MEDS ORDERED: METOCLOPRAMIDE INJ 10MG/2ML VIAL (J2765 PER 1) As Ordered ONE (08:50)
[2022-01-31] MEDS ORDERED: MIDAZOLAM INJ 2MG/2ML VIAL (J2250 PER 1MG) As Ordered ONE ×2 (08:51→11:35)
[2022-01-31] MEDS ORDERED: fentaNYL 100 MCG/2 ML INJECTION As Ordered ONE (08:51)
[2022-01-31] MEDS ORDERED: SUGAMMADEX SODIUM 500 MG/5 ML VIAL (BRIDION) As Ordered ONE (08:53)
[2022-01-31] MEDS ORDERED: ALBUTEROL SULFATE 2.5 MG/0.5 ML INH NEB SOLN INH ONE (09:25)
[2022-01-31] MEDS ORDERED: LIDOCAINE PRES-FREE 2% 10ML AMP NEB ONE (09:25)
[2022-01-31] MEDS ORDERED: CETACAINE SPRAY 5GM As Ordered ONE (10:04)
[2022-01-31] MEDS ORDERED: THROMBIN 5,000 UNITS VIAL As Ordered ONE (10:04)
[2022-01-31] MEDS ORDERED: HYDROMORPHONE HCL 0.5 MG/ 0.5 ML SYRINGE (J1170 PER 1) IV PRN (10:40)
[2022-01-31] MEDS ORDERED: fentaNYL 100 MCG/2 ML INJECTION IV PRN (10:40)
[2022-01-31] MEDS ORDERED: ONDANSETRON 4MG 2ML VIAL IV PRN (10:40)
[2022-01-31] MEDS ORDERED: oxyCODONE 5MG TAB PO PRN (10:40)
[2022-01-31] MEDS ORDERED: ALBUTEROL SULFATE 2.5 MG/0.5 ML INH NEB SOLN NEB ONE (11:05)
[2022-01-31] MEDS ORDERED: MIDAZOLAM INJ 2MG/2ML VIAL (J2250 PER 1MG) IV STA (11:38)
[2022-01-31 12:45] VITALS: BP 135/62
== END 2022-01-31 13:05 | disposition home or self-care (01) ==
LOC: M SDC 06:37
PROVIDERS: ATTEND Internal Medicine Critical Care Medicine
DX: R91.8 Other nonspecific abnormal finding of lung field (principal); J98.11 Atelectasis; J43.9 Emphysema, unspecified; R06.00 Dyspnea, unspecified; R05.3 Chronic cough; I10 Essential (primary) hypertension; F17.210 Nicotine dependence, cigarettes, uncomplicated; Z79.899 Other long term (current) drug therapy; Z79.82 Long term (current) use of aspirin; Z88.2 Allergy status to sulfonamides; Z88.1 Allergy status to other antibiotic agents
CPT/HCPCS: 31623; 31624; 71045; 76000; 87070; 87077; 87102; 87116; 87186; 87205; 87206; 88104; 88108; 88313; J1100; J2250; J2405; J2765; J3010

== ENCOUNTER → 2022-02-01 | Outpatient (CLI) | payer BC, MEDICARE | LOC: M RAD 13:51 | PROVIDERS: ATTEND Physician Assistant Medical | DX: E04.1 Nontoxic single thyroid nodule (principal) ==

== ENCOUNTER → 2022-02-06 | Outpatient (CLI) | payer BC, MEDICARE | LOC: M CARPUL 12:51 | PROVIDERS: ATTEND Internal Medicine Critical Care Medicine | DX: J43.9 Emphysema, unspecified (principal) ==

== ENCOUNTER 2022-05-27 12:52 | Inpatient (IN) | payer BC, MEDICARE ==
[2022-05-27] VITALS (8 sets, daily range): BP systolic 118–143; BP diastolic 84–93; O2SAT 94–98
[~2022-05-27] VITALS: Ht 152.4 cm; Wt 55.8 kg
[2022-05-27] MEDS ORDERED: NS 1,000 ML IV ONE ×2 (13:55→16:35)
[2022-05-27 14:38] LABS: BASO % 0.1 % (0.0-1.0); HEMATOCRIT 39.5 % (36.0-47.0); HEMOGLOBIN 12.3 g/dl (12.0-15.5); LYMPH # 1.1 10^3/uL (1.5-5.0); LYMPH % 6.4 % (24.0-44.0); MEAN CORPUSCULAR HEMOGLOBIN 30.8 pg (27.0-33.0); MEAN CORPUSCULAR HGB CONC 31.1 g/dl (32.0-36.5); MONO # 0.6 10^3/uL (0.0-0.8); MONO % 3.7 % (2.0-8.0); NEUTROPHILS # 15.1 10^3/uL (1.5-8.5); NEUTROPHILS % 89.4 % (36.0-66.0); PLATELET COUNT, AUTOMATED 380 10^3/uL (150-450); RED BLOOD COUNT 3.99 10^6/uL (4.00-5.40); WHITE BLOOD COUNT 16.9 10^3/uL (4.0-10.0)
[2022-05-27 14:55] LABS: ETHYL ALCOHOL (ETHANOL) 0.003 % (0.000-0.010)
[2022-05-27 14:57] LABS: ACETAMINOPHEN LEVEL < 2.0 UG/ML (10.0-20.0); ALBUMIN 3.4 G/DL (3.2-5.2); ALKALINE PHOSPHATASE 209 U/L (46-116); ALT/SGPT 35 U/L (7.0-40); AST/SGOT 39 U/L (<34); BILIRUBIN,DIRECT 0.1 MG/DL (<0.4); BILIRUBIN,TOTAL 0.3 MG/DL (0.3-1.2); BLOOD UREA NITROGEN 21 MG/DL (9-23); CALCIUM LEVEL 11.3 MG/DL (8.3-10.6); CARBON DIOXIDE LEVEL 24 MMOL/L (20-31); CHLORIDE LEVEL 106 MMOL/L (98-107); CREATININE FOR GFR 1.81 MG/DL (0.55-1.30); GLOMERULAR FILTRATION RATE 29.5 (>45); GLUCOSE, FASTING 102 MG/DL (74-106); POTASSIUM SERUM 4.1 MMOL/L (3.5-5.1); SALICYLATE LEVEL < 3.0 MG/DL (<30); SODIUM LEVEL 139 MMOL/L (136-145); TOTAL PROTEIN 7.2 G/DL (5.7-8.2)
[2022-05-27 14:58] LABS: LITHIUM LEVEL 1.55 MMOL/L (0.60-1.20)
[2022-05-27 15:02] LABS: RSV AMPLIFICATION NEGATIVE (NEGATIVE)
[2022-05-27 16:28] LABS: AMPHETAMINES LEVEL URINE NEGATIVE (NEGATIVE); BARBITURATES URINE NEGATIVE (NEGATIVE); BENZODIAZEPINES URINE NEGATIVE (NEGATIVE); COCAINE METABOLITE URINE NEGATIVE (NEGATIVE); METHADONE URINE NEGATIVE (NEGATIVE); OPIATES URINE NEGATIVE (NEGATIVE); PHENCYCLIDINE URINE NEGATIVE (NEGATIVE)
[2022-05-27 16:29] LABS: CANNABINOIDS URINE NEGATIVE (NEGATIVE)
[2022-05-27] MEDS ORDERED: GLUCOSE 4GM CHEW TABLET PO PRN (16:30)
[2022-05-27] MEDS ORDERED: GLUCAGON INJ 1MG VIAL SC PRN (16:30)
[2022-05-27] MEDS ORDERED: DEXTROSE 50% 50ML SYRINGE IV PRN (16:30)
[2022-05-27] MEDS ORDERED: AMLO1TAB24 PO (17:11)
[2022-05-27] MEDS ORDERED: ALEN70TA82 PO (17:11)
[2022-05-27] MEDS ORDERED: ATOR1TAB21 PO (17:11)
[2022-05-27] MEDS ORDERED: QUET200T2 PO (17:11)
[2022-05-27] MEDS ORDERED: HOME MED LIST COMPLETE! XX SCH (17:15)
[2022-05-27] MEDS: NS 1,000 ML IV SCH (18:34)
[2022-05-27 19:36] LABS: CALCIUM LEVEL 9.4 MG/DL (8.3-10.6); CREATININE FOR GFR 1.54 MG/DL (0.55-1.30); GLOMERULAR FILTRATION RATE 35.6 (>45); MAGNESIUM LEVEL 2.4 MG/DL (1.8-2.4)
[2022-05-27 19:37] LABS: LITHIUM LEVEL 1.29 MMOL/L (0.60-1.20)
[2022-05-27 19:50] LABS: ALBUMIN 2.9 G/DL (3.2-5.2); BILIRUBIN,DIRECT 0.1 MG/DL (<0.4); BILIRUBIN,TOTAL 0.3 MG/DL (0.3-1.2); TOTAL PROTEIN 6.1 G/DL (5.7-8.2)
[2022-05-27] MEDS: cefTRIAXone SOD 1 GM in D5W MINI-BAG PLUS 50 ML IV SCH (20:35)
[2022-05-28] VITALS (11 sets, daily range): BP systolic 117–170; BP diastolic 59–79; O2SAT 94–96
[2022-05-28] MEDS: NS 1,000 ML IV SCH (00:29)
[2022-05-28 00:35] LABS: CALCIUM LEVEL 8.9 MG/DL (8.3-10.6); CREATININE FOR GFR 1.45 MG/DL (0.55-1.30); GLOMERULAR FILTRATION RATE 38.1 (>45); LITHIUM LEVEL 1.18 MMOL/L (0.60-1.20); POTASSIUM SERUM 3.8 MMOL/L (3.5-5.1)
[2022-05-28] MEDS: D5W 1,000 ML IV SCH ×4 (01:01→16:59)
[2022-05-28] MEDS ORDERED: NS 1,000 ML IV SCH (02:30)
[2022-05-28 06:23] LABS: BASO % 0.2 % (0.0-1.0); HEMATOCRIT 35.9 % (36.0-47.0); HEMOGLOBIN 10.9 g/dl (12.0-15.5); LYMPH # 0.6 10^3/uL (1.5-5.0); LYMPH % 5.7 % (24.0-44.0); MEAN CORPUSCULAR HEMOGLOBIN 30.4 pg (27.0-33.0); MEAN CORPUSCULAR HGB CONC 30.4 g/dl (32.0-36.5); MEAN CORPUSCULAR VOLUME 100.3 fl (80.0-96.0); MONO # 0.5 10^3/uL (0.0-0.8); MONO % 4.8 % (2.0-8.0); NEUTROPHILS # 9.9 10^3/uL (1.5-8.5); PLATELET COUNT, AUTOMATED 315 10^3/uL (150-450); RED BLOOD COUNT 3.58 10^6/uL (4.00-5.40); WHITE BLOOD COUNT 11.2 10^3/uL (4.0-10.0)
[2022-05-28 06:48] LABS: LITHIUM LEVEL 1.04 MMOL/L (0.60-1.20)
[2022-05-28 06:56] LABS: CALCIUM LEVEL 8.7 MG/DL (8.3-10.6); CREATININE FOR GFR 1.41 MG/DL (0.55-1.30); GLOMERULAR FILTRATION RATE 39.4 (>45); POTASSIUM SERUM 3.4 MMOL/L (3.5-5.1)
[2022-05-28] MEDS ORDERED: NS 1,000 ML IV ONE (08:35)
[2022-05-28 12:33] LABS: CALCIUM LEVEL 8.7 MG/DL (8.3-10.6); CREATININE FOR GFR 1.35 MG/DL (0.55-1.30); GLOMERULAR FILTRATION RATE 41.4 (>45); POTASSIUM SERUM 3.3 MMOL/L (3.5-5.1)
[2022-05-28 12:35] LABS: LITHIUM LEVEL 0.79 MMOL/L (0.60-1.20)
[2022-05-28] MEDS: KCL 10MEQ/100ML SWI (KRUN) 10 MEQ in IV 1 EA IV SCH ×2 (14:13→15:45)
[2022-05-28 18:42] LABS: CALCIUM LEVEL 8.9 MG/DL (8.3-10.6); CREATININE FOR GFR 1.3 MG/DL (0.55-1.30); GLOMERULAR FILTRATION RATE 43.2 (>45); POTASSIUM SERUM 3.6 MMOL/L (3.5-5.1)
[2022-05-28 18:46] LABS: LITHIUM LEVEL 0.67 MMOL/L (0.60-1.20)
[2022-05-28] MEDS: cefTRIAXone SOD 1 GM in D5W MINI-BAG PLUS 50 ML IV SCH (20:24)
[2022-05-29] MEDS: D5W 1,000 ML IV SCH ×5 (00:29→23:52)
[2022-05-29 00:34] LABS: CALCIUM LEVEL 8.9 MG/DL (8.3-10.6); CREATININE FOR GFR 1.28 MG/DL (0.55-1.30); POTASSIUM SERUM 3.4 MMOL/L (3.5-5.1)
[2022-05-29 04:00] VITALS: BP 165/76
[2022-05-29 05:43] LABS: BASO % 0.2 % (0.0-1.0); EOS # 0.1 10^3/uL (0.0-0.5); HEMATOCRIT 36.5 % (36.0-47.0); HEMOGLOBIN 11.3 g/dl (12.0-15.5); LYMPH # 1.3 10^3/uL (1.5-5.0); LYMPH % 10.4 % (24.0-44.0); MEAN CORPUSCULAR HEMOGLOBIN 30.6 pg (27.0-33.0); MEAN CORPUSCULAR VOLUME 98.9 fl (80.0-96.0); MONO # 0.9 10^3/uL (0.0-0.8); MONO % 7.2 % (2.0-8.0); NEUTROPHILS % 80.4 % (36.0-66.0); PLATELET COUNT, AUTOMATED 317 10^3/uL (150-450); RED BLOOD COUNT 3.69 10^6/uL (4.00-5.40); WHITE BLOOD COUNT 12.4 10^3/uL (4.0-10.0)
[2022-05-29 06:03] LABS: CREATININE FOR GFR 1.28 MG/DL (0.55-1.30); LITHIUM LEVEL 0.54 MMOL/L (0.60-1.20); POTASSIUM SERUM 3.3 MMOL/L (3.5-5.1)
[2022-05-29] MEDS: KCL 10MEQ/100ML SWI (KRUN) 10 MEQ in IV 1 EA IV SCH ×4 (06:51→12:25)
[2022-05-29 08:17] VITALS: BP 154/88
[2022-05-29] MEDS ORDERED: D5W 1,000 ML IV ONE (13:40)
[2022-05-29 14:08] LABS: ANTINUCLEAR ANTIBODIES DIRECT Negative (Negative)
[2022-05-29 15:56] VITALS: BP 130/58
[2022-05-29 19:05] LABS: CALCIUM LEVEL 8.7 MG/DL (8.3-10.6); CREATININE FOR GFR 1.11 MG/DL (0.55-1.30); GLOMERULAR FILTRATION RATE 51.9 (>45); POTASSIUM SERUM 3.4 MMOL/L (3.5-5.1)
[2022-05-29] MEDS: cefTRIAXone SOD 1 GM in D5W MINI-BAG PLUS 50 ML IV SCH (19:43)
[2022-05-30 04:00] VITALS: BP 148/81
[2022-05-30 05:23] LABS: BASO % 0.2 % (0.0-1.0); EOS # 0.1 10^3/uL (0.0-0.5); EOS % 0.7 % (0.0-3.0); HEMATOCRIT 39.7 % (36.0-47.0); HEMOGLOBIN 12.6 g/dl (12.0-15.5); LYMPH # 1.5 10^3/uL (1.5-5.0); LYMPH % 11.5 % (24.0-44.0); MEAN CORPUSCULAR HEMOGLOBIN 31.1 pg (27.0-33.0); MEAN CORPUSCULAR HGB CONC 31.7 g/dl (32.0-36.5); MONO % 7.9 % (2.0-8.0); NEUTROPHILS # 10.4 10^3/uL (1.5-8.5); NEUTROPHILS % 78.9 % (36.0-66.0); PLATELET COUNT, AUTOMATED 306 10^3/uL (150-450); RED BLOOD COUNT 4.05 10^6/uL (4.00-5.40); WHITE BLOOD COUNT 13.1 10^3/uL (4.0-10.0)
[2022-05-30 05:46] LABS: CALCIUM LEVEL 9.3 MG/DL (8.3-10.6); CREATININE FOR GFR 1.12 MG/DL (0.55-1.30); GLOMERULAR FILTRATION RATE 51.3 (>45); POTASSIUM SERUM 3.7 MMOL/L (3.5-5.1)
[2022-05-30 08:29] VITALS: BP 157/74
[2022-05-30 10:24] LABS: OSMOLALITY URINE 114 MOSM/KG (50-1400)
[2022-05-30 10:34] LABS: SODIUM,RANDOM URINE 14 MMOL/L
[2022-05-30] MEDS: D5W 1,000 ML IV SCH ×2 (12:15→23:25)
[2022-05-30 19:18] VITALS: BP 152/96
[2022-05-30] MEDS: FORMOTEROL FUMARATE 20 MCG/2 ML INHALATION SOLUTION (PERFOROMIST) INH SCH (20:00)
[2022-05-30] MEDS ORDERED: methylPREDNISolone 125MG 2ML VIAL IV ONE (20:50)
[2022-05-30 21:43] LABS: ABG BASE EXCESS -7.7 (-2.0-2.0); ABG HCO3 16.1 MEQ/L (22.0-26.0); ABG O2 SATURATION 95.4 % (95.0-99.0); ABG PARTIAL PRESSURE CO2 28.2 mmHg (35.0-45.0); ABG PARTIAL PRESSURE O2 74.2 mmHg (75.0-100.0); ABG STANDARD HCO3 18.3 MEQ/L (22.0-26.0); ABG TOTAL CO2 16.9 MEQ/L (23.0-31.0); ABG pH (ARTERIAL) 7.374 UNITS (7.350-7.450)
[2022-05-30 22:00] VITALS: BP 139/99
[2022-05-30 23:15] VITALS: BP 138/88
[2022-05-30] MEDS ORDERED: IPRATROPIUM 0.5MG/ALBUTEROL 2.5MG INH SOL UD 3ML (DUONEB) NEB PRN (23:15)
[2022-05-30] MEDS: IPRATROPIUM 0.5MG/ALBUTEROL 2.5MG INH SOL UD 3ML (DUONEB) NEB SCH (23:26)
[2022-05-31] MEDS ORDERED: cefTRIAXone SOD 1 GM in D5W MINI-BAG PLUS 50 ML IV SCH ×2
[2022-05-31] MEDS: IPRATROPIUM 0.5MG/ALBUTEROL 2.5MG INH SOL UD 3ML (DUONEB) NEB SCH ×3 (00:08→19:16)
[2022-05-31] MEDS ORDERED: ONDANSETRON 4MG 2ML VIAL IV PRN (00:25)
[2022-05-31] MEDS ORDERED: SODIUM CHLORIDE NASAL 0.65% SPRAY BTL (OCEAN) PRN (00:50)
[2022-05-31 00:54] LABS: LITHIUM LEVEL 0.36 MMOL/L (0.60-1.20)
[2022-05-31 00:57] LABS: CALCIUM LEVEL 9.2 MG/DL (8.3-10.6); CREATININE FOR GFR 1.26 MG/DL (0.55-1.30); GLOMERULAR FILTRATION RATE 44.8 (>45)
[2022-05-31] MEDS ORDERED: ACETAMINOPHEN 1000MG 100ML IV BAG IV ONE (01:00)
[2022-05-31 01:55] LABS: RSV AMPLIFICATION NEGATIVE (NEGATIVE)
[2022-05-31] MEDS: NS 0.45% 1,000 ML IV SCH ×3 (02:42→22:32)
[2022-05-31] MEDS: DOXYCYCLINE HYCLATE 100 MG in D5W MINI-BAG PLUS 100 ML IV SCH ×2 (02:43→14:34)
[2022-05-31 03:10] LABS: ABG BASE EXCESS -4.2 (-2.0-2.0); ABG HCO3 18.6 MEQ/L (22.0-26.0); ABG O2 SATURATION 96.3 % (95.0-99.0); ABG PARTIAL PRESSURE CO2 28.2 mmHg (35.0-45.0); ABG PARTIAL PRESSURE O2 77.2 mmHg (75.0-100.0); ABG TOTAL CO2 19.5 MEQ/L (23.0-31.0); ABG pH (ARTERIAL) 7.437 UNITS (7.350-7.450)
[2022-05-31 05:21] VITALS: BP 140/90
[2022-05-31] MEDS ORDERED: ISOVUE-370 76% 100ML VIAL As Ordered ONE (05:37)
[2022-05-31 06:00] LABS: BASO % 0.1 % (0.0-1.0); HEMATOCRIT 40.6 % (36.0-47.0); LYMPH # 0.5 10^3/uL (1.5-5.0); LYMPH % 4.3 % (24.0-44.0); MEAN CORPUSCULAR HEMOGLOBIN 31.1 pg (27.0-33.0); MEAN CORPUSCULAR VOLUME 97.1 fl (80.0-96.0); MONO # 0.1 10^3/uL (0.0-0.8); MONO % 0.8 % (2.0-8.0); NEUTROPHILS # 10.4 10^3/uL (1.5-8.5); NEUTROPHILS % 94.3 % (36.0-66.0); PLATELET COUNT, AUTOMATED 225 10^3/uL (150-450); RED BLOOD COUNT 4.18 10^6/uL (4.00-5.40); WHITE BLOOD COUNT 11.1 10^3/uL (4.0-10.0)
[2022-05-31 06:22] LABS: CALCIUM LEVEL 9.5 MG/DL (8.3-10.6); CREATININE FOR GFR 1.25 MG/DL (0.55-1.30); GLOMERULAR FILTRATION RATE 45.2 (>45); POTASSIUM SERUM 3.6 MMOL/L (3.5-5.1)
[2022-05-31] MEDS: methylPREDNISolone 40MG 1ML VIAL IV SCH ×2 (06:22→14:34)
[2022-05-31 06:24] LABS: LITHIUM LEVEL 0.36 MMOL/L (0.60-1.20)
[2022-05-31] MEDS: FORMOTEROL FUMARATE 20 MCG/2 ML INHALATION SOLUTION (PERFOROMIST) INH SCH ×2 (07:35→19:16)
[2022-05-31] MEDS: ENOXAPARIN 40MG/0.4ML SYRINGE (J1650 PER 10MG) SC SCH (09:46)
[2022-05-31 14:00] VITALS: BP 140/100
[2022-05-31] MEDS ORDERED: LORazepam 2 MG/ML 1ML VIAL IV STA (17:04)
[2022-05-31 17:05] LABS: VENOUS BASE EXCESS -6.6 (-2.0-2.0); VENOUS HCO3 17.5 MEQ/L (23.0-27.0); VENOUS PARTIAL PRESSURE CO2 31.3 mmHg (38.0-50.0); VENOUS PARTIAL PRESSURE O2 63.8 mmHg (30.0-50.0); VENOUS PH 7.366 UNITS (7.330-7.430); VENOUS TOTAL CO2 18.5 MEQ/L (24.0-28.0)
[2022-05-31 17:57] LABS: OSMOLALITY URINE 208 MOSM/KG (50-1400)
[2022-05-31 17:59] LABS: APPEARANCE, URINE MANUAL CLEAR (CLEAR); BILIRUBIN, URINE MANUAL NEGATIVE (NEGATIVE); BLOOD URINE MANUAL POSITIVE (NEGATIVE); COLOR, URINE MANUAL LT YELLOW (YELLOW); GLUCOSE, URINE (UA) MANUAL NEGATIVE (NEGATIVE); KETONE, URINE MANUAL NEGATIVE (NEGATIVE); LEUKOCYTE ESTERASE, URINE MAN NEGATIVE (NEGATIVE); NITRITE, URINE MANUAL NEGATIVE (NEGATIVE); PROTEIN, URINE MANUAL TRACE mg/dL (NEGATIVE); UROBILINOGEN, URINE MANUAL NORMAL (NORMAL)
[2022-05-31 18:01] LABS: ALBUMIN 2.6 G/DL (3.2-5.2); BILIRUBIN,TOTAL 0.2 MG/DL (0.3-1.2); CALCIUM LEVEL 9.6 MG/DL (8.3-10.6); CREATININE FOR GFR 1.22 MG/DL (0.55-1.30); GLOMERULAR FILTRATION RATE 46.5 (>45); POTASSIUM SERUM 3.4 MMOL/L (3.5-5.1); TOTAL PROTEIN 6.1 G/DL (5.7-8.2)
[2022-05-31 18:14] LABS: SODIUM,RANDOM URINE 10 MMOL/L
[2022-05-31 18:23] LABS: CREATININE,RANDOM URINE 31.4 MG/DL
[2022-05-31 18:32] LABS: BACTERIA, URINE NONE SEEN; RBC, URINE 0-1 /hpf (0-3); SQUAMOUS EPITHELIAL CELL URINE NONE SEEN /hpf (SMALL AMT); WBC, URINE 0-1 /hpf (0-3)
[2022-05-31 18:53] LABS: THYROID STIMULATING HORMONE 0.566 uIU/ML (0.55-4.78)
[2022-05-31 22:09] VITALS: BP 118/78
[2022-06-01] MEDS ORDERED: LORazepam 2 MG/ML 1ML VIAL IV SCH
[2022-06-01] MEDS: IPRATROPIUM 0.5MG/ALBUTEROL 2.5MG INH SOL UD 3ML (DUONEB) NEB SCH ×4 (00:49→19:16)
[2022-06-01] MEDS: ACETAMINOPHEN TAB 650MG DOSE (2X325MG) NG PRN ×2 (04:22→16:43)
[2022-06-01 05:45] LABS: BASO % 0.2 % (0.0-1.0); HEMATOCRIT 36.5 % (36.0-47.0); HEMOGLOBIN 11.4 g/dl (12.0-15.5); LYMPH # 0.9 10^3/uL (1.5-5.0); LYMPH % 4.5 % (24.0-44.0); MEAN CORPUSCULAR HEMOGLOBIN 30.8 pg (27.0-33.0); MEAN CORPUSCULAR HGB CONC 31.2 g/dl (32.0-36.5); MEAN CORPUSCULAR VOLUME 98.6 fl (80.0-96.0); MONO # 1.2 10^3/uL (0.0-0.8); MONO % 6.1 % (2.0-8.0); NEUTROPHILS # 17.4 10^3/uL (1.5-8.5); NEUTROPHILS % 88.2 % (36.0-66.0); PLATELET COUNT, AUTOMATED 229 10^3/uL (150-450); WHITE BLOOD COUNT 19.7 10^3/uL (4.0-10.0)
[2022-06-01 05:57] VITALS: BP 138/66
[2022-06-01 06:13] LABS: CALCIUM LEVEL 9.4 MG/DL (8.3-10.6); CREATININE FOR GFR 1.17 MG/DL (0.55-1.30); GLOMERULAR FILTRATION RATE 48.8 (>45); LITHIUM LEVEL 0.23 MMOL/L (0.60-1.20); POTASSIUM SERUM 3.5 MMOL/L (3.5-5.1)
[2022-06-01] MEDS: FORMOTEROL FUMARATE 20 MCG/2 ML INHALATION SOLUTION (PERFOROMIST) INH SCH ×2 (07:31→19:16)
[2022-06-01] MEDS: ENOXAPARIN 40MG/0.4ML SYRINGE (J1650 PER 10MG) SC SCH ×2 (07:49→07:50)
[2022-06-01 14:00] VITALS: BP 149/80
[2022-06-01] MEDS ORDERED: FUROSEMIDE 40MG/4ML VIAL IV ONE (16:05)
[2022-06-01] MEDS: SALIVA SUBSTITUTE(MOUTHKOTE) BTL MT PRN (16:44)
[2022-06-01] MEDS: LORazepam 2 MG/ML 1ML VIAL IV SCH (17:41)
[2022-06-01 20:00] VITALS: BP 137/71
[2022-06-01 21:15] LABS: ABG BASE EXCESS 0.5 (-2.0-2.0); ABG HCO3 24.2 MEQ/L (22.0-26.0); ABG O2 SATURATION 95.9 % (95.0-99.0); ABG PARTIAL PRESSURE CO2 35.6 mmHg (35.0-45.0); ABG STANDARD HCO3 24.9 MEQ/L (22.0-26.0); ABG TOTAL CO2 25.3 MEQ/L (23.0-31.0)
[2022-06-02] MEDS: LORazepam 2 MG/ML 1ML VIAL IV SCH ×3 (00:36→11:46)
[2022-06-02] MEDS: IPRATROPIUM 0.5MG/ALBUTEROL 2.5MG INH SOL UD 3ML (DUONEB) NEB SCH ×4 (01:01→19:45)
[2022-06-02 05:57] LABS: BASO % 0.1 % (0.0-1.0); EOS % 0.2 % (0.0-3.0); HEMATOCRIT 35.3 % (36.0-47.0); HEMOGLOBIN 10.9 g/dl (12.0-15.5); LYMPH # 1.2 10^3/uL (1.5-5.0); MEAN CORPUSCULAR HEMOGLOBIN 30.5 pg (27.0-33.0); MEAN CORPUSCULAR HGB CONC 30.9 g/dl (32.0-36.5); MEAN CORPUSCULAR VOLUME 98.9 fl (80.0-96.0); MONO % 7.7 % (2.0-8.0); NEUTROPHILS # 16.8 10^3/uL (1.5-8.5); NEUTROPHILS % 85.1 % (36.0-66.0); PLATELET COUNT, AUTOMATED 240 10^3/uL (150-450); RED BLOOD COUNT 3.57 10^6/uL (4.00-5.40); WHITE BLOOD COUNT 19.7 10^3/uL (4.0-10.0)
[2022-06-02] MEDS ORDERED: LORazepam 2 MG/ML 1ML VIAL IV SCH (06:00)
[2022-06-02 06:23] LABS: CALCIUM LEVEL 9.7 MG/DL (8.3-10.6); CREATININE FOR GFR 1.09 MG/DL (0.55-1.30); POTASSIUM SERUM 3.9 MMOL/L (3.5-5.1)
[2022-06-02 06:53] LABS: MONO # 1.5 10^3/uL (0.0-0.8)
[2022-06-02] MEDS ORDERED: D5W 1000ML IV ONE (07:30)
[2022-06-02 07:45] VITALS: BP 148/81
[2022-06-02] MEDS: FORMOTEROL FUMARATE 20 MCG/2 ML INHALATION SOLUTION (PERFOROMIST) INH SCH ×2 (08:03→19:45)
[2022-06-02 08:30] VITALS: BP 142/81
[2022-06-02 09:00] LABS: ABG BASE EXCESS 2.6 (-2.0-2.0); ABG HCO3 26.9 MEQ/L (22.0-26.0); ABG O2 SATURATION 90.7 % (95.0-99.0); ABG PARTIAL PRESSURE CO2 40.2 mmHg (35.0-45.0); ABG PARTIAL PRESSURE O2 57.4 mmHg (75.0-100.0); ABG STANDARD HCO3 26.7 MEQ/L (22.0-26.0); ABG TOTAL CO2 28.1 MEQ/L (23.0-31.0); ABG pH (ARTERIAL) 7.443 UNITS (7.350-7.450)
[2022-06-02] MEDS ORDERED: ISOVUE-370 76% 100ML VIAL As Ordered ONE (09:58)
[2022-06-02] MEDS: ENOXAPARIN 40MG/0.4ML SYRINGE (J1650 PER 10MG) SC SCH (10:46)
[2022-06-02] MEDS ORDERED: BISACODYL 10MG SUPP PR ONE (10:50)
[2022-06-02] MEDS: PIPERACILLIN/TAZOBACTAM SOD 3.375 GM in D5W MINI-BAG PLUS 50 ML IV SCH ×3 (12:30→23:33)
[2022-06-02 14:00] VITALS: BP 141/79
[2022-06-02 14:32] LABS: CALCIUM LEVEL 9.6 MG/DL (8.3-10.6); GLOMERULAR FILTRATION RATE 58.5 (>45); POTASSIUM SERUM 4.5 MMOL/L (3.5-5.1)
[2022-06-02] MEDS ORDERED: D5W 1,000 ML IV ONE (15:15)
[2022-06-02 20:00] VITALS: BP 145/79
[2022-06-03] MEDS ORDERED: IPRATROPIUM 0.02% SOLN 0.5MG 2.5ML NEB NEB ONE (01:00)
[2022-06-03] MEDS ORDERED: LEVALBUTEROL 1.25MG 0.5ML CONCENTRATE NEB NEB ONE (01:00)
[2022-06-03 01:12] LABS: CALCIUM LEVEL 9.2 MG/DL (8.3-10.6); CREATININE FOR GFR 1.04 MG/DL (0.55-1.30); GLOMERULAR FILTRATION RATE 55.9 (>45); POTASSIUM SERUM 4.7 MMOL/L (3.5-5.1)
[2022-06-03] MEDS ORDERED: D5W 1,000 ML IV SCH (01:15)
[2022-06-03 01:27] LABS: ABG BASE EXCESS 4.3 (-2.0-2.0); ABG HCO3 30.1 MEQ/L (22.0-26.0); ABG PARTIAL PRESSURE CO2 50.8 mmHg (35.0-45.0); ABG PARTIAL PRESSURE O2 89.1 mmHg (75.0-100.0); ABG STANDARD HCO3 28.4 MEQ/L (22.0-26.0); ABG TOTAL CO2 31.7 MEQ/L (23.0-31.0); ABG pH (ARTERIAL) 7.391 UNITS (7.350-7.450)
[2022-06-03 05:33] LABS: VENOUS BASE EXCESS 2.8 (-2.0-2.0); VENOUS HCO3 29.1 MEQ/L (23.0-27.0); VENOUS O2 SATURATION 99.2 % (60.0-80.0); VENOUS PARTIAL PRESSURE O2 164.1 mmHg (30.0-50.0); VENOUS PH 7.357 UNITS (7.330-7.430); VENOUS TOTAL CO2 30.7 MEQ/L (24.0-28.0)
[2022-06-03 05:36] LABS: BASO % 0.1 % (0.0-1.0); EOS # 0.3 10^3/uL (0.0-0.5); EOS % 2.2 % (0.0-3.0); HEMATOCRIT 32.5 % (36.0-47.0); HEMOGLOBIN 9.5 g/dl (12.0-15.5); LYMPH # 1.4 10^3/uL (1.5-5.0); LYMPH % 10.4 % (24.0-44.0); MEAN CORPUSCULAR HEMOGLOBIN 30.4 pg (27.0-33.0); MEAN CORPUSCULAR HGB CONC 29.2 g/dl (32.0-36.5); MEAN CORPUSCULAR VOLUME 104.2 fl (80.0-96.0); MONO # 1.2 10^3/uL (0.0-0.8); MONO % 8.7 % (2.0-8.0); NEUTROPHILS # 10.5 10^3/uL (1.5-8.5); NEUTROPHILS % 77.9 % (36.0-66.0); PLATELET COUNT, AUTOMATED 202 10^3/uL (150-450); RED BLOOD COUNT 3.12 10^6/uL (4.00-5.40); WHITE BLOOD COUNT 13.4 10^3/uL (4.0-10.0)
[2022-06-03] MEDS: PIPERACILLIN/TAZOBACTAM SOD 3.375 GM in D5W MINI-BAG PLUS 50 ML IV SCH ×3 (05:52→17:24)
[2022-06-03 06:00] VITALS: BP 109/57
[2022-06-03 06:08] LABS: CALCIUM LEVEL 9.1 MG/DL (8.3-10.6); CREATININE FOR GFR 1.03 MG/DL (0.55-1.30); GLOMERULAR FILTRATION RATE 56.6 (>45); POTASSIUM SERUM 4.6 MMOL/L (3.5-5.1)
[2022-06-03] MEDS: FORMOTEROL FUMARATE 20 MCG/2 ML INHALATION SOLUTION (PERFOROMIST) INH SCH ×2 (07:34→19:34)
[2022-06-03] MEDS: IPRATROPIUM 0.5MG/ALBUTEROL 2.5MG INH SOL UD 3ML (DUONEB) NEB SCH ×5 (07:34→23:13)
[2022-06-03] MEDS ORDERED: MORPHINE 2 MG/ML 1ML VIAL IV ONE (08:05)
[2022-06-03] MEDS ORDERED: MORPHINE 2 MG/ML 1ML VIAL As Ordered ONE (08:08)
[2022-06-03] MEDS ORDERED: IPRATROPIUM 0.5MG/ALBUTEROL 2.5MG INH SOL UD 3ML (DUONEB) NEB PRN (08:55)
[2022-06-03] MEDS ORDERED: methylPREDNISolone 125MG 2ML VIAL IV ONE (10:00)
[2022-06-03] MEDS: ENOXAPARIN 40MG/0.4ML SYRINGE (J1650 PER 10MG) SC SCH (10:01)
[2022-06-03] MEDS: DOCUSATE SOD LIQ 100MG/10ML UDC NG SCH ×2 (10:01→20:59)
[2022-06-03] MEDS: PANTOPRAZOLE 40MG VIAL IV SCH (10:02)
[2022-06-03] MEDS: BISACODYL 10MG SUPP PR SCH (10:02)
[2022-06-03 10:08] LABS: C REACTIVE PROTEIN QUANTITATIV 0.9 MG/DL (<1.0)
[2022-06-03] MEDS: BUDESONIDE 0.5 MG/2 ML INHALATION SUSPENSION INH SCH ×2 (11:14→19:34)
[2022-06-03 14:00] VITALS: BP 146/74
[2022-06-03 14:19] LABS: VENOUS BASE EXCESS 3.8 (-2.0-2.0); VENOUS HCO3 28.7 MEQ/L (23.0-27.0); VENOUS O2 SATURATION 99.1 % (60.0-80.0); VENOUS PARTIAL PRESSURE CO2 44.9 mmHg (38.0-50.0); VENOUS PARTIAL PRESSURE O2 167.3 mmHg (30.0-50.0); VENOUS PH 7.424 UNITS (7.330-7.430); VENOUS STANDARD HCO3 27.9 MEQ/L; VENOUS TOTAL CO2 30.1 MEQ/L (24.0-28.0)
[2022-06-03] MEDS ORDERED: LORazepam 2 MG/ML 1ML VIAL IV STA (14:47)
[2022-06-03 14:48] LABS: CALCIUM LEVEL 8.6 MG/DL (8.3-10.6); CREATININE FOR GFR 1.02 MG/DL (0.55-1.30); GLOMERULAR FILTRATION RATE 57.2 (>45); POTASSIUM SERUM 4.6 MMOL/L (3.5-5.1)
[2022-06-03] MEDS: methylPREDNISolone 40MG 1ML VIAL IV SCH ×2 (16:18→21:00)
[2022-06-03] MEDS: ACETAMINOPHEN TAB 650MG DOSE (2X325MG) NG PRN (18:18)
[2022-06-03 20:24] VITALS: BP 168/86
[2022-06-03] MEDS ORDERED: D5W 1000ML IV ONE (20:25)
[2022-06-03] MEDS ORDERED: ACETAMINOPHEN 325MG/10.15ML UDC NG ONE (21:00)
[2022-06-03] MEDS ORDERED: BISACODYL 10MG SUPP PR ONE (21:00)
[2022-06-03] MEDS: SALIVA SUBSTITUTE(MOUTHKOTE) BTL MT PRN (21:07)
[2022-06-03 22:33] VITALS: BP 150/70
[2022-06-03] MEDS ORDERED: VANCOMYCIN HCL 500 MG in D5W MINI-BAG PLUS 100 ML IV ONE (23:00)
[2022-06-03] MEDS ORDERED: VANCOMYCIN HCL 750 MG, VIAL MATE ADAPTER 1 EACH in D5W 250 ML IV ONE (23:00)
[2022-06-04] MEDS ORDERED: IBUPROFEN 100MG 5ML ORAL SUSP UDC NG ONE (01:00)
[2022-06-04] MEDS: PIPERACILLIN/TAZOBACTAM SOD 3.375 GM in D5W MINI-BAG PLUS 50 ML IV SCH ×5 (01:52→23:22)
[2022-06-04] MEDS: IPRATROPIUM 0.5MG/ALBUTEROL 2.5MG INH SOL UD 3ML (DUONEB) NEB SCH ×6 (03:01→23:52)
[2022-06-04] MEDS: methylPREDNISolone 40MG 1ML VIAL IV SCH ×3 (05:00→16:08)
[2022-06-04 05:46] VITALS: BP 122/51
[2022-06-04 05:56] LABS: VENOUS BASE EXCESS 3.6 (-2.0-2.0); VENOUS HCO3 26.9 MEQ/L (23.0-27.0); VENOUS PARTIAL PRESSURE CO2 35.7 mmHg (38.0-50.0); VENOUS PARTIAL PRESSURE O2 153.6 mmHg (30.0-50.0); VENOUS PH 7.495 UNITS (7.330-7.430); VENOUS STANDARD HCO3 27.7 MEQ/L
[2022-06-04 06:01] LABS: BASO % 0.1 % (0.0-1.0); HEMATOCRIT 30.9 % (36.0-47.0); HEMOGLOBIN 9.2 g/dl (12.0-15.5); LYMPH # 0.7 10^3/uL (1.5-5.0); LYMPH % 4.1 % (24.0-44.0); MEAN CORPUSCULAR HEMOGLOBIN 30.7 pg (27.0-33.0); MEAN CORPUSCULAR HGB CONC 29.8 g/dl (32.0-36.5); MONO # 0.9 10^3/uL (0.0-0.8); NEUTROPHILS # 15.6 10^3/uL (1.5-8.5); NEUTROPHILS % 89.4 % (36.0-66.0); PLATELET COUNT, AUTOMATED 227 10^3/uL (150-450); WHITE BLOOD COUNT 17.5 10^3/uL (4.0-10.0)
[2022-06-04 06:38] LABS: BLOOD UREA NITROGEN 32 MG/DL (9-23); CALCIUM LEVEL 8.6 MG/DL (8.3-10.6); CARBON DIOXIDE LEVEL 29 MMOL/L (20-31); CHLORIDE LEVEL 111 MMOL/L (98-107); CREATININE FOR GFR 1.08 MG/DL (0.55-1.30); GLOMERULAR FILTRATION RATE 53.5 (>45); GLUCOSE, FASTING 154 MG/DL (74-106); POTASSIUM SERUM 4.5 MMOL/L (3.5-5.1); SODIUM LEVEL 147 MMOL/L (136-145)
[2022-06-04] MEDS: BUDESONIDE 0.5 MG/2 ML INHALATION SUSPENSION INH SCH ×2 (07:37→18:57)
[2022-06-04] MEDS: FORMOTEROL FUMARATE 20 MCG/2 ML INHALATION SOLUTION (PERFOROMIST) INH SCH ×2 (07:37→18:57)
[2022-06-04] MEDS: BISACODYL 10MG SUPP PR SCH (08:57)
[2022-06-04] MEDS: PANTOPRAZOLE 40MG VIAL IV SCH (08:57)
[2022-06-04] MEDS: ENOXAPARIN 40MG/0.4ML SYRINGE (J1650 PER 10MG) SC SCH (09:00)
[2022-06-04] MEDS: DOCUSATE SOD LIQ 100MG/10ML UDC NG SCH ×2 (09:17→20:55)
[2022-06-04] MEDS ORDERED: LIDOCAINE 1% MDV 20ML VIAL As Ordered ONE (12:16)
[2022-06-04 13:58] LABS: APPEARANCE, CSF CLEAR (CLEAR); COLOR, CSF COLORLESS (COLORLESS); CSF TUBE# CELL CNT TUBE 4
[2022-06-04 13:59] LABS: APPEARANCE, CSF CLEAR (CLEAR); COLOR, CSF COLORLESS (COLORLESS); CSF TUBE# CELL CNT TUBE 1
[2022-06-04 14:00] VITALS: BP 141/76
[2022-06-04 14:36] LABS: CSF TUBE# GLU TUBE 2
[2022-06-04] MEDS: ACETAMINOPHEN TAB 650MG DOSE (2X325MG) NG PRN (16:08)
[2022-06-04 17:17] LABS: CSF TUBE# TP TUBE 2; TOTAL PROTEIN,CSF 32.6 MG/DL (15-45)
[2022-06-04 17:49] LABS: LDH LACTATE DEHYDROGENASE 325 U/L (120-246)
[2022-06-04 17:50] LABS: CPK CREATINE PHOSPHOKINASE 87 U/L (34-145)
[2022-06-04 17:54] LABS: ALBUMIN 2.4 G/DL (3.2-5.2); ALKALINE PHOSPHATASE 137 U/L (46-116); ALT/SGPT 123 U/L (7.0-40); AST/SGOT 75 U/L (<34); BILIRUBIN,DIRECT < 0.1 MG/DL (<0.4); BILIRUBIN,TOTAL 0.3 MG/DL (0.3-1.2); TOTAL PROTEIN 5.4 G/DL (5.7-8.2)
[2022-06-04] MEDS: DANTROLENE 25 MG CAP GT SCH ×2 (20:55→23:22)
[2022-06-04] MEDS ORDERED: VANCOMYCIN HCL 1,000 MG, VIAL MATE ADAPTER 1 EACH in NS 250 ML IV SCH (21:00)
[2022-06-04 22:00] VITALS: BP 140/75
[2022-06-05] MEDS: IPRATROPIUM 0.5MG/ALBUTEROL 2.5MG INH SOL UD 3ML (DUONEB) NEB SCH ×7 (03:45→23:10)
[2022-06-05] MEDS: PIPERACILLIN/TAZOBACTAM SOD 3.375 GM in D5W MINI-BAG PLUS 50 ML IV SCH ×2 (05:07→11:15)
[2022-06-05] MEDS: methylPREDNISolone 40MG 1ML VIAL IV SCH ×2 (05:08→15:00)
[2022-06-05] MEDS: DANTROLENE 25 MG CAP GT SCH ×3 (05:11→18:38)
[2022-06-05] MEDS: ACETAMINOPHEN TAB 650MG DOSE (2X325MG) NG PRN (05:16)
[2022-06-05 05:50] LABS: BASO % 0.1 % (0.0-1.0); HEMATOCRIT 32.6 % (36.0-47.0); HEMOGLOBIN 9.6 g/dl (12.0-15.5); LYMPH # 1.1 10^3/uL (1.5-5.0); LYMPH % 5.1 % (24.0-44.0); MEAN CORPUSCULAR HEMOGLOBIN 30.5 pg (27.0-33.0); MEAN CORPUSCULAR HGB CONC 29.4 g/dl (32.0-36.5); MEAN CORPUSCULAR VOLUME 103.5 fl (80.0-96.0); MONO % 8.1 % (2.0-8.0); NEUTROPHILS % 85.4 % (36.0-66.0); PLATELET COUNT, AUTOMATED 286 10^3/uL (150-450); RED BLOOD COUNT 3.15 10^6/uL (4.00-5.40); WHITE BLOOD COUNT 21.1 10^3/uL (4.0-10.0)
[2022-06-05 05:54] LABS: MONO # 1.7 10^3/uL (0.0-0.8)
[2022-06-05 06:00] VITALS: BP 144/89
[2022-06-05 06:13] LABS: BLOOD UREA NITROGEN 36 MG/DL (9-23); CALCIUM LEVEL 9.6 MG/DL (8.3-10.6); CARBON DIOXIDE LEVEL 31 MMOL/L (20-31); CHLORIDE LEVEL 118 MMOL/L (98-107); CREATININE FOR GFR 1.16 MG/DL (0.55-1.30); GLOMERULAR FILTRATION RATE 49.3 (>45); GLUCOSE, FASTING 133 MG/DL (74-106); POTASSIUM SERUM 5.4 MMOL/L (3.5-5.1); SODIUM LEVEL 153 MMOL/L (136-145)
[2022-06-05] MEDS: BUDESONIDE 0.5 MG/2 ML INHALATION SUSPENSION INH SCH ×2 (07:07→19:12)
[2022-06-05] MEDS: FORMOTEROL FUMARATE 20 MCG/2 ML INHALATION SOLUTION (PERFOROMIST) INH SCH ×2 (07:07→19:12)
[2022-06-05 08:38] LABS: ALBUMIN 2.6 G/DL (3.2-5.2); ALKALINE PHOSPHATASE 131 U/L (46-116); ALT/SGPT 140 U/L (7.0-40); AST/SGOT 76 U/L (<34); BILIRUBIN,DIRECT < 0.1 MG/DL (<0.4); BILIRUBIN,TOTAL 0.3 MG/DL (0.3-1.2); TOTAL PROTEIN 5.8 G/DL (5.7-8.2)
[2022-06-05] MEDS: PANTOPRAZOLE 40MG VIAL IV SCH (09:20)
[2022-06-05] MEDS: BISACODYL 10MG SUPP PR SCH (09:20)
[2022-06-05] MEDS: DOCUSATE SOD LIQ 100MG/10ML UDC NG SCH ×2 (09:20→21:56)
[2022-06-05] MEDS: ENOXAPARIN 40MG/0.4ML SYRINGE (J1650 PER 10MG) SC SCH (09:21)
[2022-06-05 10:21] LABS: OSMOLALITY SERUM 331 MOSM/KG (280-301)
[2022-06-05 14:00] VITALS: BP 142/83
[2022-06-05] MEDS: LORazepam 2 MG/ML 1ML VIAL IV SCH ×2 (14:47→21:56)
[2022-06-05 20:12] VITALS: BP 145/82
[2022-06-06] MEDS: DANTROLENE 25 MG CAP GT SCH ×5 (00:07→23:54)
[2022-06-06] MEDS: IPRATROPIUM 0.5MG/ALBUTEROL 2.5MG INH SOL UD 3ML (DUONEB) NEB SCH ×6 (03:15→23:12)
[2022-06-06] MEDS: methylPREDNISolone 40MG 1ML VIAL IV SCH ×2 (05:01→16:29)
[2022-06-06 05:02] VITALS: BP 152/81
[2022-06-06 05:43] LABS: BASO % 0.2 % (0.0-1.0); EOS % 0.1 % (0.0-3.0); HEMATOCRIT 34.1 % (36.0-47.0); HEMOGLOBIN 9.7 g/dl (12.0-15.5); LYMPH # 1.2 10^3/uL (1.5-5.0); MEAN CORPUSCULAR HEMOGLOBIN 30.5 pg (27.0-33.0); MEAN CORPUSCULAR HGB CONC 28.4 g/dl (32.0-36.5); MEAN CORPUSCULAR VOLUME 107.2 fl (80.0-96.0); MONO % 8.7 % (2.0-8.0); NEUTROPHILS # 16.7 10^3/uL (1.5-8.5); PLATELET COUNT, AUTOMATED 284 10^3/uL (150-450); RED BLOOD COUNT 3.18 10^6/uL (4.00-5.40); WHITE BLOOD COUNT 19.9 10^3/uL (4.0-10.0)
[2022-06-06 06:20] LABS: BLOOD UREA NITROGEN 38 MG/DL (9-23); CALCIUM LEVEL 9.8 MG/DL (8.3-10.6); CARBON DIOXIDE LEVEL 30 MMOL/L (20-31); CHLORIDE LEVEL 113 MMOL/L (98-107); CREATININE FOR GFR 1.04 MG/DL (0.55-1.30); GLOMERULAR FILTRATION RATE 55.9 (>45); GLUCOSE, FASTING 134 MG/DL (74-106); POTASSIUM SERUM 5.1 MMOL/L (3.5-5.1); SODIUM LEVEL 150 MMOL/L (136-145)
[2022-06-06 06:31] LABS: MONO # 1.7 10^3/uL (0.0-0.8)
[2022-06-06] MEDS: LORazepam 2 MG/ML 1ML VIAL IV SCH (06:40)
[2022-06-06] MEDS: BUDESONIDE 0.5 MG/2 ML INHALATION SUSPENSION INH SCH ×2 (07:08→19:17)
[2022-06-06] MEDS: FORMOTEROL FUMARATE 20 MCG/2 ML INHALATION SOLUTION (PERFOROMIST) INH SCH ×2 (07:08→19:17)
[2022-06-06 07:58] LABS: ALBUMIN 2.8 G/DL (3.2-5.2); ALKALINE PHOSPHATASE 114 U/L (46-116); ALT/SGPT 133 U/L (7.0-40); AST/SGOT 69 U/L (<34); BILIRUBIN,DIRECT < 0.1 MG/DL (<0.4); BILIRUBIN,TOTAL 0.2 MG/DL (0.3-1.2); TOTAL PROTEIN 5.9 G/DL (5.7-8.2)
[2022-06-06 08:00] VITALS: BP 112/52
[2022-06-06] MEDS: BISACODYL 10MG SUPP PR SCH (09:09)
[2022-06-06] MEDS: DOCUSATE SOD LIQ 100MG/10ML UDC NG SCH ×2 (09:09→21:09)
[2022-06-06] MEDS: PANTOPRAZOLE 40MG VIAL IV SCH (09:09)
[2022-06-06] MEDS: ENOXAPARIN 40MG/0.4ML SYRINGE (J1650 PER 10MG) SC SCH (09:10)
[2022-06-06 10:30] VITALS: BP 124/74
[2022-06-06] MEDS ORDERED: OLANZapine INTRAMUSCULAR 10MG VIAL IM ONE (11:00)
[2022-06-06 14:00] VITALS: BP 126/75
[2022-06-06] MEDS ORDERED: PROHANCE 279.3MG/ML 5ML VIAL As Ordered ONE (14:14)
[2022-06-06 20:42] LABS: THYROID STIMULATING HORMONE 0.867 uIU/ML (0.55-4.78)
[2022-06-06 21:09] VITALS: BP 129/75
[2022-06-06 23:51] VITALS: BP 130/75
[2022-06-07] MEDS: IPRATROPIUM 0.5MG/ALBUTEROL 2.5MG INH SOL UD 3ML (DUONEB) NEB SCH ×6 (02:59→23:09)
[2022-06-07] MEDS: DANTROLENE 25 MG CAP GT SCH ×3 (05:25→17:55)
[2022-06-07] MEDS: methylPREDNISolone 40MG 1ML VIAL IV SCH ×2 (05:25→16:30)
[2022-06-07 06:00] VITALS: BP 131/76
[2022-06-07 06:28] LABS: BASO % 0.1 % (0.0-1.0); EOS # 0.1 10^3/uL (0.0-0.5); EOS % 0.4 % (0.0-3.0); HEMATOCRIT 32.6 % (36.0-47.0); HEMOGLOBIN 9.5 g/dl (12.0-15.5); LYMPH % 7.6 % (24.0-44.0); MEAN CORPUSCULAR HEMOGLOBIN 31.3 pg (27.0-33.0); MEAN CORPUSCULAR HGB CONC 29.1 g/dl (32.0-36.5); MEAN CORPUSCULAR VOLUME 107.2 fl (80.0-96.0); MONO # 1.3 10^3/uL (0.0-0.8); NEUTROPHILS # 10.7 10^3/uL (1.5-8.5); NEUTROPHILS % 80.9 % (36.0-66.0); PLATELET COUNT, AUTOMATED 257 10^3/uL (150-450); RED BLOOD COUNT 3.04 10^6/uL (4.00-5.40); WHITE BLOOD COUNT 13.3 10^3/uL (4.0-10.0)
[2022-06-07 07:00] LABS: ALBUMIN 2.7 G/DL (3.2-5.2); BILIRUBIN,TOTAL 0.2 MG/DL (0.3-1.2); CALCIUM LEVEL 9.6 MG/DL (8.3-10.6); CREATININE FOR GFR 1.05 MG/DL (0.55-1.30); GLOMERULAR FILTRATION RATE 55.3 (>45); POTASSIUM SERUM 4.6 MMOL/L (3.5-5.1); TOTAL PROTEIN 5.5 G/DL (5.7-8.2)
[2022-06-07] MEDS ORDERED: D5W 1000ML IV ONE (07:10)
[2022-06-07] MEDS: BUDESONIDE 0.5 MG/2 ML INHALATION SUSPENSION INH SCH ×2 (07:30→19:15)
[2022-06-07] MEDS: FORMOTEROL FUMARATE 20 MCG/2 ML INHALATION SOLUTION (PERFOROMIST) INH SCH ×2 (07:30→19:15)
[2022-06-07] MEDS: DOCUSATE SOD LIQ 100MG/10ML UDC NG SCH ×3 (08:53→21:00)
[2022-06-07] MEDS: BISACODYL 10MG SUPP PR SCH ×2 (08:53→09:00)
[2022-06-07] MEDS: ENOXAPARIN 40MG/0.4ML SYRINGE (J1650 PER 10MG) SC SCH (08:53)
[2022-06-07] MEDS: D5W 1,000 ML IV SCH (08:59)
[2022-06-07] MEDS: PANTOPRAZOLE 40MG VIAL IV SCH (09:00)
[2022-06-07 14:00] VITALS: BP 133/73
[2022-06-07 22:00] VITALS: BP 132/72
[2022-06-08] MEDS: DANTROLENE 25 MG CAP GT SCH ×4 (00:25→17:20)
[2022-06-08] MEDS: IPRATROPIUM 0.5MG/ALBUTEROL 2.5MG INH SOL UD 3ML (DUONEB) NEB SCH ×6 (03:50→23:49)
[2022-06-08] MEDS: methylPREDNISolone 40MG 1ML VIAL IV SCH ×2 (04:07→17:19)
[2022-06-08] MEDS: D5W 1,000 ML IV SCH (04:08)
[2022-06-08 05:15] VITALS: BP 131/72
[2022-06-08 05:49] VITALS: BP 131/72
[2022-06-08 06:23] LABS: BASO % 0.2 % (0.0-1.0); EOS # 0.1 10^3/uL (0.0-0.5); EOS % 0.7 % (0.0-3.0); HEMATOCRIT 31.2 % (36.0-47.0); HEMOGLOBIN 9.2 g/dl (12.0-15.5); LYMPH # 0.8 10^3/uL (1.5-5.0); LYMPH % 5.7 % (24.0-44.0); MEAN CORPUSCULAR HGB CONC 29.5 g/dl (32.0-36.5); MEAN CORPUSCULAR VOLUME 105.1 fl (80.0-96.0); MONO # 0.9 10^3/uL (0.0-0.8); NEUTROPHILS # 11.2 10^3/uL (1.5-8.5); NEUTROPHILS % 85.3 % (36.0-66.0); PLATELET COUNT, AUTOMATED 248 10^3/uL (150-450); RED BLOOD COUNT 2.97 10^6/uL (4.00-5.40); WHITE BLOOD COUNT 13.1 10^3/uL (4.0-10.0)
[2022-06-08 06:56] LABS: ALBUMIN 2.6 G/DL (3.2-5.2); ALKALINE PHOSPHATASE 93 U/L (46-116); ALT/SGPT 81 U/L (7.0-40); AST/SGOT 27 U/L (<34); BILIRUBIN,TOTAL 0.2 MG/DL (0.3-1.2); BLOOD UREA NITROGEN 32 MG/DL (9-23); CALCIUM LEVEL 9.3 MG/DL (8.3-10.6); CARBON DIOXIDE LEVEL 30 MMOL/L (20-31); CHLORIDE LEVEL 106 MMOL/L (98-107); CREATININE FOR GFR 0.87 MG/DL (0.55-1.30); GLOMERULAR FILTRATION RATE > 60.0 (>45); GLUCOSE, FASTING 119 MG/DL (74-106); POTASSIUM SERUM 4.1 MMOL/L (3.5-5.1); SODIUM LEVEL 142 MMOL/L (136-145); TOTAL PROTEIN 5.4 G/DL (5.7-8.2)
[2022-06-08] MEDS: BUDESONIDE 0.5 MG/2 ML INHALATION SUSPENSION INH SCH ×2 (07:19→19:06)
[2022-06-08] MEDS: FORMOTEROL FUMARATE 20 MCG/2 ML INHALATION SOLUTION (PERFOROMIST) INH SCH ×2 (07:19→19:06)
[2022-06-08] MEDS ORDERED: FUROSEMIDE 40MG/4ML VIAL IV ONE (07:20)
[2022-06-08] MEDS: DOCUSATE SOD LIQ 100MG/10ML UDC NG SCH ×2 (07:48→21:52)
[2022-06-08] MEDS: ENOXAPARIN 40MG/0.4ML SYRINGE (J1650 PER 10MG) SC SCH (11:20)
[2022-06-08] MEDS: PANTOPRAZOLE 40MG VIAL IV SCH (11:20)
[2022-06-08 14:00] VITALS: BP 124/69
[2022-06-08] MEDS: THIAMINE 200MG 2ML VIAL IV SCH (21:52)
[2022-06-08 22:00] VITALS: BP 123/88
[2022-06-09] MEDS: DANTROLENE 25 MG CAP GT SCH ×4 (00:33→18:05)
[2022-06-09] MEDS: IPRATROPIUM 0.5MG/ALBUTEROL 2.5MG INH SOL UD 3ML (DUONEB) NEB SCH ×6 (04:32→23:53)
[2022-06-09] MEDS: methylPREDNISolone 40MG 1ML VIAL IV SCH ×2 (05:05→16:43)
[2022-06-09 05:31] LABS: BASO % 0.2 % (0.0-1.0); EOS # 0.1 10^3/uL (0.0-0.5); EOS % 0.4 % (0.0-3.0); HEMATOCRIT 32.3 % (36.0-47.0); HEMOGLOBIN 9.8 g/dl (12.0-15.5); LYMPH % 8.6 % (24.0-44.0); MEAN CORPUSCULAR HEMOGLOBIN 30.9 pg (27.0-33.0); MEAN CORPUSCULAR HGB CONC 30.3 g/dl (32.0-36.5); MEAN CORPUSCULAR VOLUME 101.9 fl (80.0-96.0); MONO # 0.9 10^3/uL (0.0-0.8); MONO % 7.7 % (2.0-8.0); NEUTROPHILS # 9.5 10^3/uL (1.5-8.5); NEUTROPHILS % 82.2 % (36.0-66.0); PLATELET COUNT, AUTOMATED 256 10^3/uL (150-450); RED BLOOD COUNT 3.17 10^6/uL (4.00-5.40); WHITE BLOOD COUNT 11.5 10^3/uL (4.0-10.0)
[2022-06-09 06:00] VITALS: BP 123/68
[2022-06-09 06:01] LABS: ALBUMIN 2.7 G/DL (3.2-5.2); ALKALINE PHOSPHATASE 91 U/L (46-116); ALT/SGPT 71 U/L (7.0-40); AST/SGOT 18 U/L (<34); BILIRUBIN,TOTAL 0.2 MG/DL (0.3-1.2); BLOOD UREA NITROGEN 37 MG/DL (9-23); CALCIUM LEVEL 9.4 MG/DL (8.3-10.6); CARBON DIOXIDE LEVEL 33 MMOL/L (20-31); CHLORIDE LEVEL 104 MMOL/L (98-107); CREATININE FOR GFR 0.85 MG/DL (0.55-1.30); GLOMERULAR FILTRATION RATE > 60.0 (>45); GLUCOSE, FASTING 74 MG/DL (74-106); POTASSIUM SERUM 3.8 MMOL/L (3.5-5.1); SODIUM LEVEL 142 MMOL/L (136-145); TOTAL PROTEIN 5.6 G/DL (5.7-8.2)
[2022-06-09] MEDS: FORMOTEROL FUMARATE 20 MCG/2 ML INHALATION SOLUTION (PERFOROMIST) INH SCH ×2 (07:11→19:37)
[2022-06-09] MEDS: BUDESONIDE 0.5 MG/2 ML INHALATION SUSPENSION INH SCH ×2 (07:11→19:37)
[2022-06-09] MEDS: ENOXAPARIN 40MG/0.4ML SYRINGE (J1650 PER 10MG) SC SCH (10:06)
[2022-06-09] MEDS: PANTOPRAZOLE 40MG VIAL IV SCH (10:06)
[2022-06-09] MEDS: THIAMINE 200MG 2ML VIAL IV SCH ×2 (10:07→21:23)
[2022-06-09] MEDS: DOCUSATE SOD LIQ 100MG/10ML UDC NG SCH ×2 (10:07→21:22)
[2022-06-09 14:00] VITALS: BP 124/69
[2022-06-09 22:00] VITALS: BP 127/70
[2022-06-10] VITALS (8 sets, daily range): BP systolic 118–128; BP diastolic 70–74; O2SAT 91–94
[2022-06-10] MEDS: DANTROLENE 25 MG CAP GT SCH ×4 (00:47→18:04)
[2022-06-10] MEDS: IPRATROPIUM 0.5MG/ALBUTEROL 2.5MG INH SOL UD 3ML (DUONEB) NEB SCH ×6 (03:10→23:22)
[2022-06-10] MEDS: methylPREDNISolone 40MG 1ML VIAL IV SCH ×2 (03:52→15:24)
[2022-06-10 05:47] LABS: BASO % 0.1 % (0.0-1.0); EOS # 0.1 10^3/uL (0.0-0.5); EOS % 0.6 % (0.0-3.0); HEMATOCRIT 31.7 % (36.0-47.0); HEMOGLOBIN 9.6 g/dl (12.0-15.5); LYMPH # 0.7 10^3/uL (1.5-5.0); LYMPH % 4.5 % (24.0-44.0); MEAN CORPUSCULAR HEMOGLOBIN 30.9 pg (27.0-33.0); MEAN CORPUSCULAR HGB CONC 30.3 g/dl (32.0-36.5); MEAN CORPUSCULAR VOLUME 101.9 fl (80.0-96.0); MONO # 0.7 10^3/uL (0.0-0.8); MONO % 4.8 % (2.0-8.0); NEUTROPHILS # 13.8 10^3/uL (1.5-8.5); NEUTROPHILS % 89.1 % (36.0-66.0); PLATELET COUNT, AUTOMATED 281 10^3/uL (150-450); RED BLOOD COUNT 3.11 10^6/uL (4.00-5.40); WHITE BLOOD COUNT 15.5 10^3/uL (4.0-10.0)
[2022-06-10 06:13] LABS: ALBUMIN 2.7 G/DL (3.2-5.2); ALKALINE PHOSPHATASE 94 U/L (46-116); ALT/SGPT 66 U/L (7.0-40); AST/SGOT 19 U/L (<34); BILIRUBIN,TOTAL 0.2 MG/DL (0.3-1.2); BLOOD UREA NITROGEN 38 MG/DL (9-23); CALCIUM LEVEL 9.3 MG/DL (8.3-10.6); CARBON DIOXIDE LEVEL 31 MMOL/L (20-31); CHLORIDE LEVEL 105 MMOL/L (98-107); CREATININE FOR GFR 0.76 MG/DL (0.55-1.30); GLOMERULAR FILTRATION RATE > 60.0 (>45); GLUCOSE, FASTING 103 MG/DL (74-106); POTASSIUM SERUM 3.8 MMOL/L (3.5-5.1); SODIUM LEVEL 142 MMOL/L (136-145); TOTAL PROTEIN 5.6 G/DL (5.7-8.2)
[2022-06-10] MEDS: FORMOTEROL FUMARATE 20 MCG/2 ML INHALATION SOLUTION (PERFOROMIST) INH SCH ×2 (07:25→19:41)
[2022-06-10] MEDS: BUDESONIDE 0.5 MG/2 ML INHALATION SUSPENSION INH SCH ×2 (07:25→19:41)
[2022-06-10] MEDS ORDERED: FUROSEMIDE 40MG/4ML VIAL IV ONE (09:00)
[2022-06-10] MEDS: DOCUSATE SOD LIQ 100MG/10ML UDC NG SCH ×2 (09:45→20:16)
[2022-06-10] MEDS: THIAMINE 200MG 2ML VIAL IV SCH (09:46)
[2022-06-10] MEDS: ENOXAPARIN 40MG/0.4ML SYRINGE (J1650 PER 10MG) SC SCH (09:46)
[2022-06-10] MEDS: PANTOPRAZOLE 40MG VIAL IV SCH (09:46)
[2022-06-11] VITALS (7 sets, daily range): BP systolic 125–138; BP diastolic 59–68; O2SAT 93–97
[2022-06-11] MEDS: methylPREDNISolone 40MG 1ML VIAL IV SCH (03:25)
[2022-06-11] MEDS: IPRATROPIUM 0.5MG/ALBUTEROL 2.5MG INH SOL UD 3ML (DUONEB) NEB SCH ×6 (03:31→23:17)
[2022-06-11 06:35] LABS: ALBUMIN 2.9 G/DL (3.2-5.2); ALKALINE PHOSPHATASE 99 U/L (46-116); ALT/SGPT 68 U/L (7.0-40); AST/SGOT 25 U/L (<34); BILIRUBIN,TOTAL 0.2 MG/DL (0.3-1.2); BLOOD UREA NITROGEN 44 MG/DL (9-23); CARBON DIOXIDE LEVEL 31 MMOL/L (20-31); CHLORIDE LEVEL 102 MMOL/L (98-107); CREATININE FOR GFR 0.84 MG/DL (0.55-1.30); GLOMERULAR FILTRATION RATE > 60.0 (>45); GLUCOSE, FASTING 108 MG/DL (74-106); POTASSIUM SERUM 3.5 MMOL/L (3.5-5.1); SODIUM LEVEL 141 MMOL/L (136-145); TOTAL PROTEIN 5.8 G/DL (5.7-8.2)
[2022-06-11] MEDS: BUDESONIDE 0.5 MG/2 ML INHALATION SUSPENSION INH SCH ×2 (07:51→19:09)
[2022-06-11] MEDS: FORMOTEROL FUMARATE 20 MCG/2 ML INHALATION SOLUTION (PERFOROMIST) INH SCH ×2 (07:51→19:09)
[2022-06-11] MEDS ORDERED: THIAMINE 100 MG TAB PO SCH (09:00)
[2022-06-11] MEDS: PANTOPRAZOLE 40MG VIAL IV SCH (09:32)
[2022-06-11] MEDS: DOCUSATE SOD LIQ 100MG/10ML UDC NG SCH ×2 (09:33→20:01)
[2022-06-11] MEDS: ENOXAPARIN 40MG/0.4ML SYRINGE (J1650 PER 10MG) SC SCH (09:33)
[2022-06-11] MEDS: DANTROLENE 25 MG CAP GT SCH (12:35)
[2022-06-12] VITALS (8 sets, daily range): BP systolic 122–133; BP diastolic 58–72; O2SAT 92–94
[2022-06-12] MEDS: IPRATROPIUM 0.5MG/ALBUTEROL 2.5MG INH SOL UD 3ML (DUONEB) NEB SCH ×6 (03:08→23:22)
[2022-06-12] MEDS: methylPREDNISolone 40MG 1ML VIAL IV SCH (03:45)
[2022-06-12 06:06] LABS: BASO % 0.1 % (0.0-1.0); EOS # 0.2 10^3/uL (0.0-0.5); EOS % 1.3 % (0.0-3.0); HEMATOCRIT 34.1 % (36.0-47.0); HEMOGLOBIN 10.6 g/dl (12.0-15.5); LYMPH # 0.4 10^3/uL (1.5-5.0); LYMPH % 3.1 % (24.0-44.0); MEAN CORPUSCULAR HGB CONC 31.1 g/dl (32.0-36.5); MEAN CORPUSCULAR VOLUME 99.7 fl (80.0-96.0); MONO # 0.4 10^3/uL (0.0-0.8); MONO % 2.6 % (2.0-8.0); NEUTROPHILS # 12.4 10^3/uL (1.5-8.5); PLATELET COUNT, AUTOMATED 294 10^3/uL (150-450); RED BLOOD COUNT 3.42 10^6/uL (4.00-5.40); WHITE BLOOD COUNT 13.5 10^3/uL (4.0-10.0)
[2022-06-12 06:37] LABS: BLOOD UREA NITROGEN 38 MG/DL (9-23); CALCIUM LEVEL 9.7 MG/DL (8.3-10.6); CARBON DIOXIDE LEVEL 32 MMOL/L (20-31); CHLORIDE LEVEL 103 MMOL/L (98-107); CREATININE FOR GFR 0.71 MG/DL (0.55-1.30); GLOMERULAR FILTRATION RATE > 60.0 (>45); GLUCOSE, FASTING 126 MG/DL (74-106); POTASSIUM SERUM 3.1 MMOL/L (3.5-5.1); SODIUM LEVEL 141 MMOL/L (136-145)
[2022-06-12] MEDS ORDERED: POTASSIUM CHLORIDE 10% LIQ 20MEQ/15ML UDC PO ONE (07:30)
[2022-06-12] MEDS: BUDESONIDE 0.5 MG/2 ML INHALATION SUSPENSION INH SCH ×2 (07:40→19:32)
[2022-06-12] MEDS: FORMOTEROL FUMARATE 20 MCG/2 ML INHALATION SOLUTION (PERFOROMIST) INH SCH ×2 (07:40→19:32)
[2022-06-12] MEDS: DOCUSATE SOD LIQ 100MG/10ML UDC NG SCH ×2 (10:52→19:58)
[2022-06-12] MEDS: PANTOPRAZOLE 40MG VIAL IV SCH (10:53)
[2022-06-12] MEDS: THIAMINE 100 MG TAB NG SCH (10:53)
[2022-06-12] MEDS: ENOXAPARIN 40MG/0.4ML SYRINGE (J1650 PER 10MG) SC SCH (10:54)
[2022-06-12] MEDS ORDERED: FUROSEMIDE 40MG/4ML VIAL IV ONE (11:20)
[2022-06-13] MEDS: IPRATROPIUM 0.5MG/ALBUTEROL 2.5MG INH SOL UD 3ML (DUONEB) NEB SCH ×5 (03:07→19:27)
[2022-06-13] MEDS: methylPREDNISolone 40MG 1ML VIAL IV SCH (03:17)
[2022-06-13 07:33] VITALS: O2SAT 94
[2022-06-13] MEDS: BUDESONIDE 0.5 MG/2 ML INHALATION SUSPENSION INH SCH ×2 (07:33→19:27)
[2022-06-13] MEDS: FORMOTEROL FUMARATE 20 MCG/2 ML INHALATION SOLUTION (PERFOROMIST) INH SCH ×2 (07:33→19:27)
[2022-06-13 08:19] LABS: BASO % 0.1 % (0.0-1.0); EOS % 0.2 % (0.0-3.0); HEMOGLOBIN 10.8 g/dl (12.0-15.5); LYMPH # 0.3 10^3/uL (1.5-5.0); LYMPH % 2.4 % (24.0-44.0); MEAN CORPUSCULAR HEMOGLOBIN 30.8 pg (27.0-33.0); MEAN CORPUSCULAR HGB CONC 30.9 g/dl (32.0-36.5); MEAN CORPUSCULAR VOLUME 99.7 fl (80.0-96.0); MONO # 0.1 10^3/uL (0.0-0.8); MONO % 1.2 % (2.0-8.0); NEUTROPHILS # 10.7 10^3/uL (1.5-8.5); NEUTROPHILS % 95.4 % (36.0-66.0); PLATELET COUNT, AUTOMATED 309 10^3/uL (150-450); RED BLOOD COUNT 3.51 10^6/uL (4.00-5.40); WHITE BLOOD COUNT 11.2 10^3/uL (4.0-10.0)
[2022-06-13] MEDS: DOCUSATE SOD LIQ 100MG/10ML UDC NG SCH ×2 (08:43→21:21)
[2022-06-13] MEDS: THIAMINE 100 MG TAB NG SCH (08:44)
[2022-06-13] MEDS: ENOXAPARIN 40MG/0.4ML SYRINGE (J1650 PER 10MG) SC SCH (08:44)
[2022-06-13 08:58] LABS: ALBUMIN 2.8 G/DL (3.2-5.2); ALKALINE PHOSPHATASE 112 U/L (46-116); ALT/SGPT 73 U/L (7.0-40); AST/SGOT 30 U/L (<34); BILIRUBIN,TOTAL 0.2 MG/DL (0.3-1.2); BLOOD UREA NITROGEN 43 MG/DL (9-23); CALCIUM LEVEL 10.1 MG/DL (8.3-10.6); CARBON DIOXIDE LEVEL 32 MMOL/L (20-31); CHLORIDE LEVEL 104 MMOL/L (98-107); CREATININE FOR GFR 0.71 MG/DL (0.55-1.30); GLOMERULAR FILTRATION RATE > 60.0 (>45); GLUCOSE, FASTING 152 MG/DL (74-106); MAGNESIUM LEVEL 2.5 MG/DL (1.8-2.4); POTASSIUM SERUM 4.2 MMOL/L (3.5-5.1); SODIUM LEVEL 142 MMOL/L (136-145); TOTAL PROTEIN 5.8 G/DL (5.7-8.2)
[2022-06-13] MEDS: PANTOPRAZOLE 40MG VIAL IV SCH (10:17)
[2022-06-13 11:14] VITALS: O2SAT 94
[2022-06-13 14:00] VITALS: BP 130/73
[2022-06-13 20:00] VITALS: BP 133/68
[2022-06-14] MEDS: IPRATROPIUM 0.5MG/ALBUTEROL 2.5MG INH SOL UD 3ML (DUONEB) NEB SCH ×4 (01:05→20:45)
[2022-06-14 03:19] VITALS: O2SAT 85; O2SAT 92
[2022-06-14 05:42] LABS: BASO % 0.1 % (0.0-1.0); EOS # 0.1 10^3/uL (0.0-0.5); EOS % 0.8 % (0.0-3.0); HEMATOCRIT 34.6 % (36.0-47.0); HEMOGLOBIN 10.8 g/dl (12.0-15.5); LYMPH # 0.8 10^3/uL (1.5-5.0); LYMPH % 6.4 % (24.0-44.0); MEAN CORPUSCULAR HEMOGLOBIN 31.1 pg (27.0-33.0); MEAN CORPUSCULAR HGB CONC 31.2 g/dl (32.0-36.5); MEAN CORPUSCULAR VOLUME 99.7 fl (80.0-96.0); MONO # 0.8 10^3/uL (0.0-0.8); MONO % 6.2 % (2.0-8.0); NEUTROPHILS # 10.7 10^3/uL (1.5-8.5); NEUTROPHILS % 85.9 % (36.0-66.0); PLATELET COUNT, AUTOMATED 318 10^3/uL (150-450); RED BLOOD COUNT 3.47 10^6/uL (4.00-5.40); WHITE BLOOD COUNT 12.4 10^3/uL (4.0-10.0)
[2022-06-14 06:00] VITALS: BP 139/71
[2022-06-14 06:10] LABS: BLOOD UREA NITROGEN 42 MG/DL (9-23); CALCIUM LEVEL 10.3 MG/DL (8.3-10.6); CARBON DIOXIDE LEVEL 31 MMOL/L (20-31); CHLORIDE LEVEL 106 MMOL/L (98-107); CREATININE FOR GFR 0.72 MG/DL (0.55-1.30); GLOMERULAR FILTRATION RATE > 60.0 (>45); GLUCOSE, FASTING 124 MG/DL (74-106); POTASSIUM SERUM 3.8 MMOL/L (3.5-5.1); SODIUM LEVEL 144 MMOL/L (136-145)
[2022-06-14] MEDS: FORMOTEROL FUMARATE 20 MCG/2 ML INHALATION SOLUTION (PERFOROMIST) INH SCH ×2 (07:26→20:45)
[2022-06-14] MEDS: BUDESONIDE 0.5 MG/2 ML INHALATION SUSPENSION INH SCH ×2 (07:26→20:45)
[2022-06-14] MEDS ORDERED: predniSONE 10MG TAB PO ONE (09:00)
[2022-06-14] MEDS: THIAMINE 100 MG TAB NG SCH (09:17)
[2022-06-14] MEDS: PANTOPRAZOLE 40MG VIAL IV SCH (09:17)
[2022-06-14] MEDS: ENOXAPARIN 40MG/0.4ML SYRINGE (J1650 PER 10MG) SC SCH (09:17)
[2022-06-14] MEDS: DOCUSATE SOD LIQ 100MG/10ML UDC NG SCH ×2 (09:18→21:51)
[2022-06-14 14:00] VITALS: BP 138/72
[2022-06-14] MEDS ORDERED: BISACODYL 10MG SUPP PR PRN (18:35)
[2022-06-14] MEDS ORDERED: SENOKOT S TAB PO SCH (21:00)
[2022-06-14 22:00] VITALS: BP 130/73
[2022-06-15] MEDS: IPRATROPIUM 0.5MG/ALBUTEROL 2.5MG INH SOL UD 3ML (DUONEB) NEB SCH ×4 (01:25→19:19)
[2022-06-15 06:00] VITALS: BP 149/85
[2022-06-15 06:16] LABS: BASO % 0.1 % (0.0-1.0); EOS % 0.1 % (0.0-3.0); HEMATOCRIT 36.7 % (36.0-47.0); HEMOGLOBIN 11.2 g/dl (12.0-15.5); LYMPH # 0.5 10^3/uL (1.5-5.0); LYMPH % 3.2 % (24.0-44.0); MEAN CORPUSCULAR HEMOGLOBIN 30.6 pg (27.0-33.0); MEAN CORPUSCULAR HGB CONC 30.5 g/dl (32.0-36.5); MEAN CORPUSCULAR VOLUME 100.3 fl (80.0-96.0); MONO # 0.7 10^3/uL (0.0-0.8); MONO % 4.5 % (2.0-8.0); NEUTROPHILS # 14.7 10^3/uL (1.5-8.5); NEUTROPHILS % 91.4 % (36.0-66.0); PLATELET COUNT, AUTOMATED 348 10^3/uL (150-450); RED BLOOD COUNT 3.66 10^6/uL (4.00-5.40); WHITE BLOOD COUNT 16.1 10^3/uL (4.0-10.0)
[2022-06-15 06:52] LABS: BLOOD UREA NITROGEN 46 MG/DL (9-23); CALCIUM LEVEL 10.2 MG/DL (8.3-10.6); CARBON DIOXIDE LEVEL 32 MMOL/L (20-31); CHLORIDE LEVEL 108 MMOL/L (98-107); CREATININE FOR GFR 0.82 MG/DL (0.55-1.30); GLOMERULAR FILTRATION RATE > 60.0 (>45); GLUCOSE, FASTING 137 MG/DL (74-106); POTASSIUM SERUM 4.1 MMOL/L (3.5-5.1); SODIUM LEVEL 146 MMOL/L (136-145)
[2022-06-15] MEDS: BUDESONIDE 0.5 MG/2 ML INHALATION SUSPENSION INH SCH ×2 (07:16→19:18)
[2022-06-15] MEDS: FORMOTEROL FUMARATE 20 MCG/2 ML INHALATION SOLUTION (PERFOROMIST) INH SCH ×2 (07:16→19:18)
[2022-06-15] MEDS ORDERED: D5W 1,000 ML IV ONE (08:00)
[2022-06-15] MEDS: PANTOPRAZOLE 40MG VIAL IV SCH (09:00)
[2022-06-15] MEDS: predniSONE 10MG TAB PO SCH (09:00)
[2022-06-15] MEDS: THIAMINE 100 MG TAB NG SCH (09:00)
[2022-06-15] MEDS: ENOXAPARIN 40MG/0.4ML SYRINGE (J1650 PER 10MG) SC SCH (09:01)
[2022-06-15] MEDS: DOCUSATE SOD LIQ 100MG/10ML UDC NG SCH ×2 (09:04→20:17)
[2022-06-15 14:00] VITALS: BP 144/83
[2022-06-15 20:00] VITALS: BP 134/76
[2022-06-15] MEDS: SENNA 8.6 MG TAB (SENOKOT) NG SCH (20:17)
[2022-06-16] MEDS: IPRATROPIUM 0.5MG/ALBUTEROL 2.5MG INH SOL UD 3ML (DUONEB) NEB SCH ×4 (01:36→19:29)
[2022-06-16 06:00] VITALS: BP 131/74
[2022-06-16 06:18] LABS: EOS # 0.1 10^3/uL (0.0-0.5); HEMATOCRIT 34.3 % (36.0-47.0); HEMOGLOBIN 10.8 g/dl (12.0-15.5); LYMPH # 1.1 10^3/uL (1.5-5.0); LYMPH % 11.5 % (24.0-44.0); MEAN CORPUSCULAR HEMOGLOBIN 31.4 pg (27.0-33.0); MEAN CORPUSCULAR HGB CONC 31.5 g/dl (32.0-36.5); MEAN CORPUSCULAR VOLUME 99.7 fl (80.0-96.0); MONO # 0.9 10^3/uL (0.0-0.8); MONO % 8.6 % (2.0-8.0); NEUTROPHILS # 7.7 10^3/uL (1.5-8.5); NEUTROPHILS % 78.3 % (36.0-66.0); PLATELET COUNT, AUTOMATED 313 10^3/uL (150-450); RED BLOOD COUNT 3.44 10^6/uL (4.00-5.40); WHITE BLOOD COUNT 9.9 10^3/uL (4.0-10.0)
[2022-06-16 06:42] LABS: BLOOD UREA NITROGEN 39 MG/DL (9-23); CALCIUM LEVEL 9.5 MG/DL (8.3-10.6); CARBON DIOXIDE LEVEL 31 MMOL/L (20-31); CHLORIDE LEVEL 107 MMOL/L (98-107); CREATININE FOR GFR 0.76 MG/DL (0.55-1.30); GLOMERULAR FILTRATION RATE > 60.0 (>45); GLUCOSE, FASTING 110 MG/DL (74-106); POTASSIUM SERUM 3.9 MMOL/L (3.5-5.1); SODIUM LEVEL 144 MMOL/L (136-145)
[2022-06-16] MEDS: BUDESONIDE 0.5 MG/2 ML INHALATION SUSPENSION INH SCH ×2 (07:23→19:29)
[2022-06-16] MEDS: FORMOTEROL FUMARATE 20 MCG/2 ML INHALATION SOLUTION (PERFOROMIST) INH SCH ×2 (07:23→19:29)
[2022-06-16 08:00] VITALS: BP 131/72
[2022-06-16] MEDS: DOCUSATE SOD LIQ 100MG/10ML UDC NG SCH ×2 (08:32→20:18)
[2022-06-16] MEDS: predniSONE 10MG TAB PO SCH (08:33)
[2022-06-16] MEDS: ENOXAPARIN 40MG/0.4ML SYRINGE (J1650 PER 10MG) SC SCH (08:34)
[2022-06-16] MEDS: THIAMINE 100 MG TAB NG SCH (08:34)
[2022-06-16] MEDS: PANTOPRAZOLE 40MG VIAL IV SCH (11:09)
[2022-06-16 13:44] VITALS: BP 120/68
[2022-06-16] MEDS: ACETAMINOPHEN TAB 650MG DOSE (2X325MG) NG PRN (14:41)
[2022-06-16 20:00] VITALS: BP 132/76
[2022-06-16] MEDS: SENNA 8.6 MG TAB (SENOKOT) NG SCH (20:17)
[2022-06-17] MEDS: IPRATROPIUM 0.5MG/ALBUTEROL 2.5MG INH SOL UD 3ML (DUONEB) NEB SCH ×4 (01:24→20:00)
[2022-06-17 06:00] VITALS: BP 129/75
[2022-06-17 06:37] LABS: BASO % 0.1 % (0.0-1.0); EOS # 0.1 10^3/uL (0.0-0.5); HEMATOCRIT 35.5 % (36.0-47.0); LYMPH % 9.9 % (24.0-44.0); MEAN CORPUSCULAR HEMOGLOBIN 31.1 pg (27.0-33.0); MEAN CORPUSCULAR VOLUME 100.3 fl (80.0-96.0); MONO # 0.8 10^3/uL (0.0-0.8); MONO % 7.8 % (2.0-8.0); NEUTROPHILS # 8.3 10^3/uL (1.5-8.5); NEUTROPHILS % 80.9 % (36.0-66.0); PLATELET COUNT, AUTOMATED 293 10^3/uL (150-450); RED BLOOD COUNT 3.54 10^6/uL (4.00-5.40); WHITE BLOOD COUNT 10.2 10^3/uL (4.0-10.0)
[2022-06-17 07:08] LABS: BLOOD UREA NITROGEN 35 MG/DL (9-23); CALCIUM LEVEL 9.9 MG/DL (8.3-10.6); CARBON DIOXIDE LEVEL 34 MMOL/L (20-31); CHLORIDE LEVEL 108 MMOL/L (98-107); CREATININE FOR GFR 0.72 MG/DL (0.55-1.30); GLOMERULAR FILTRATION RATE > 60.0 (>45); GLUCOSE, FASTING 112 MG/DL (74-106); SODIUM LEVEL 146 MMOL/L (136-145)
[2022-06-17] MEDS: FORMOTEROL FUMARATE 20 MCG/2 ML INHALATION SOLUTION (PERFOROMIST) INH SCH ×2 (07:18→19:04)
[2022-06-17] MEDS: BUDESONIDE 0.5 MG/2 ML INHALATION SUSPENSION INH SCH ×2 (07:18→19:04)
[2022-06-17] MEDS: DOCUSATE SOD LIQ 100MG/10ML UDC NG SCH ×2 (09:24→21:42)
[2022-06-17] MEDS: THIAMINE 100 MG TAB NG SCH (09:24)
[2022-06-17] MEDS: ENOXAPARIN 40MG/0.4ML SYRINGE (J1650 PER 10MG) SC SCH (09:24)
[2022-06-17] MEDS: predniSONE 10MG TAB PO SCH (09:24)
[2022-06-17] MEDS: PANTOPRAZOLE 40MG VIAL IV SCH (09:24)
[2022-06-17] MEDS ORDERED: D5W 500ML IV ONE (10:05)
[2022-06-17 10:39] LABS: ALBUMIN 2.9 G/DL (3.2-5.2); ALKALINE PHOSPHATASE 107 U/L (46-116); ALT/SGPT 66 U/L (7.0-40); AST/SGOT 32 U/L (<34); BILIRUBIN,DIRECT < 0.1 MG/DL (<0.4); BILIRUBIN,TOTAL 0.2 MG/DL (0.3-1.2); TOTAL PROTEIN 5.7 G/DL (5.7-8.2)
[2022-06-17 14:00] VITALS: BP 127/72
[2022-06-17] MEDS: SENNA 8.6 MG TAB (SENOKOT) NG SCH (21:42)
[2022-06-17 22:00] VITALS: BP 123/68
[2022-06-18 00:55] VITALS: O2SAT 90
[2022-06-18] MEDS: IPRATROPIUM 0.5MG/ALBUTEROL 2.5MG INH SOL UD 3ML (DUONEB) NEB SCH ×4 (01:20→19:14)
[2022-06-18 06:00] VITALS: BP 137/67
[2022-06-18 06:17] LABS: BASO % 0.1 % (0.0-1.0); EOS # 0.1 10^3/uL (0.0-0.5); EOS % 0.6 % (0.0-3.0); HEMATOCRIT 34.8 % (36.0-47.0); HEMOGLOBIN 10.5 g/dl (12.0-15.5); LYMPH # 1.2 10^3/uL (1.5-5.0); MEAN CORPUSCULAR HEMOGLOBIN 30.8 pg (27.0-33.0); MEAN CORPUSCULAR HGB CONC 30.2 g/dl (32.0-36.5); MEAN CORPUSCULAR VOLUME 102.1 fl (80.0-96.0); MONO # 0.9 10^3/uL (0.0-0.8); MONO % 5.7 % (2.0-8.0); NEUTROPHILS # 13.2 10^3/uL (1.5-8.5); PLATELET COUNT, AUTOMATED 289 10^3/uL (150-450); RED BLOOD COUNT 3.41 10^6/uL (4.00-5.40); WHITE BLOOD COUNT 15.5 10^3/uL (4.0-10.0)
[2022-06-18 06:49] LABS: BLOOD UREA NITROGEN 30 MG/DL (9-23); CALCIUM LEVEL 9.6 MG/DL (8.3-10.6); CARBON DIOXIDE LEVEL 30 MMOL/L (20-31); CHLORIDE LEVEL 110 MMOL/L (98-107); CREATININE FOR GFR 0.69 MG/DL (0.55-1.30); GLOMERULAR FILTRATION RATE > 60.0 (>45); GLUCOSE, FASTING 118 MG/DL (74-106); SODIUM LEVEL 147 MMOL/L (136-145)
[2022-06-18] MEDS: BUDESONIDE 0.5 MG/2 ML INHALATION SUSPENSION INH SCH ×2 (07:48→19:14)
[2022-06-18] MEDS: FORMOTEROL FUMARATE 20 MCG/2 ML INHALATION SOLUTION (PERFOROMIST) INH SCH ×2 (07:48→19:14)
[2022-06-18] MEDS: predniSONE 10MG TAB PO SCH (10:11)
[2022-06-18] MEDS: THIAMINE 100 MG TAB NG SCH (10:11)
[2022-06-18] MEDS: PANTOPRAZOLE 40MG VIAL IV SCH (10:11)
[2022-06-18] MEDS: DOCUSATE SOD LIQ 100MG/10ML UDC NG SCH ×2 (10:11→20:21)
[2022-06-18] MEDS: ENOXAPARIN 40MG/0.4ML SYRINGE (J1650 PER 10MG) SC SCH (10:12)
[2022-06-18 14:00] VITALS: BP 136/68
[2022-06-18] MEDS: SENNA 8.6 MG TAB (SENOKOT) NG SCH (20:22)
[2022-06-19 00:22] VITALS: O2SAT 93
[2022-06-19] MEDS: IPRATROPIUM 0.5MG/ALBUTEROL 2.5MG INH SOL UD 3ML (DUONEB) NEB SCH ×4 (01:19→19:43)
[2022-06-19 06:00] VITALS: BP 132/75
[2022-06-19 06:01] LABS: BASO % 0.1 % (0.0-1.0); EOS # 0.1 10^3/uL (0.0-0.5); EOS % 1.1 % (0.0-3.0); HEMATOCRIT 35.1 % (36.0-47.0); HEMOGLOBIN 10.7 g/dl (12.0-15.5); LYMPH # 1.3 10^3/uL (1.5-5.0); LYMPH % 10.8 % (24.0-44.0); MEAN CORPUSCULAR HGB CONC 30.5 g/dl (32.0-36.5); MEAN CORPUSCULAR VOLUME 101.7 fl (80.0-96.0); MONO # 0.7 10^3/uL (0.0-0.8); NEUTROPHILS # 9.9 10^3/uL (1.5-8.5); NEUTROPHILS % 81.4 % (36.0-66.0); PLATELET COUNT, AUTOMATED 277 10^3/uL (150-450); RED BLOOD COUNT 3.45 10^6/uL (4.00-5.40); WHITE BLOOD COUNT 12.2 10^3/uL (4.0-10.0)
[2022-06-19 06:29] LABS: BLOOD UREA NITROGEN 28 MG/DL (9-23); CALCIUM LEVEL 9.8 MG/DL (8.3-10.6); CARBON DIOXIDE LEVEL 30 MMOL/L (20-31); CHLORIDE LEVEL 112 MMOL/L (98-107); CREATININE FOR GFR 0.63 MG/DL (0.55-1.30); GLOMERULAR FILTRATION RATE > 60.0 (>45); GLUCOSE, FASTING 106 MG/DL (74-106); POTASSIUM SERUM 4.5 MMOL/L (3.5-5.1); SODIUM LEVEL 147 MMOL/L (136-145)
[2022-06-19] MEDS: FORMOTEROL FUMARATE 20 MCG/2 ML INHALATION SOLUTION (PERFOROMIST) INH SCH ×2 (07:31→19:43)
[2022-06-19] MEDS: BUDESONIDE 0.5 MG/2 ML INHALATION SUSPENSION INH SCH ×2 (07:31→19:43)
[2022-06-19 08:00] VITALS: BP 129/73
[2022-06-19] MEDS: DOCUSATE SOD LIQ 100MG/10ML UDC NG SCH ×2 (09:33→20:00)
[2022-06-19] MEDS: THIAMINE 100 MG TAB NG SCH (09:34)
[2022-06-19] MEDS: predniSONE 10MG TAB PO SCH (09:34)
[2022-06-19] MEDS: PANTOPRAZOLE 40MG VIAL IV SCH (09:35)
[2022-06-19 14:00] VITALS: BP 128/67
[2022-06-19 15:30] VITALS: O2SAT 90
[2022-06-19 20:00] VITALS: BP 126/68
[2022-06-19] MEDS: SENNA 8.6 MG TAB (SENOKOT) NG SCH (20:00)
[2022-06-20] VITALS (8 sets, daily range): BP systolic 129–149; BP diastolic 73–90; O2SAT 91
[2022-06-20] MEDS: IPRATROPIUM 0.5MG/ALBUTEROL 2.5MG INH SOL UD 3ML (DUONEB) NEB SCH ×2 (01:00→07:31)
[2022-06-20 05:47] LABS: BASO % 0.2 % (0.0-1.0); EOS # 0.1 10^3/uL (0.0-0.5); EOS % 0.8 % (0.0-3.0); HEMATOCRIT 38.2 % (36.0-47.0); LYMPH # 1.4 10^3/uL (1.5-5.0); LYMPH % 10.6 % (24.0-44.0); MEAN CORPUSCULAR HEMOGLOBIN 31.4 pg (27.0-33.0); MEAN CORPUSCULAR HGB CONC 31.4 g/dl (32.0-36.5); MONO # 0.7 10^3/uL (0.0-0.8); MONO % 5.2 % (2.0-8.0); NEUTROPHILS # 10.8 10^3/uL (1.5-8.5); NEUTROPHILS % 82.7 % (36.0-66.0); PLATELET COUNT, AUTOMATED 283 10^3/uL (150-450); RED BLOOD COUNT 3.82 10^6/uL (4.00-5.40)
[2022-06-20 06:12] LABS: BLOOD UREA NITROGEN 25 MG/DL (9-23); CALCIUM LEVEL 10.3 MG/DL (8.3-10.6); CARBON DIOXIDE LEVEL 28 MMOL/L (20-31); CHLORIDE LEVEL 109 MMOL/L (98-107); CREATININE FOR GFR 0.64 MG/DL (0.55-1.30); GLOMERULAR FILTRATION RATE > 60.0 (>45); GLUCOSE, FASTING 90 MG/DL (74-106); POTASSIUM SERUM 4.3 MMOL/L (3.5-5.1); SODIUM LEVEL 145 MMOL/L (136-145)
[2022-06-20] MEDS: FORMOTEROL FUMARATE 20 MCG/2 ML INHALATION SOLUTION (PERFOROMIST) INH SCH (07:30)
[2022-06-20] MEDS: BUDESONIDE 0.5 MG/2 ML INHALATION SUSPENSION INH SCH (07:30)
[2022-06-20] MEDS: predniSONE 10MG TAB PO SCH ×2 (09:00→18:49)
[2022-06-20] MEDS: THIAMINE 100 MG TAB NG SCH (09:00)
[2022-06-20] MEDS: DOCUSATE SOD LIQ 100MG/10ML UDC NG SCH ×2 (09:00→20:31)
[2022-06-20] MEDS ORDERED: D5W/0.45% SODIUM CHLORIDE 1,000 ML IV SCH (10:20)
[2022-06-20] MEDS ORDERED: COMBIVENT RESPIMAT 100-20MCG INHALER 4GM INH PRN (10:25)
[2022-06-20] MEDS: PANTOPRAZOLE 40MG VIAL IV SCH (11:33)
[2022-06-20] MEDS ORDERED: MIDAZOLAM INJ 2MG/2ML VIAL As Ordered ONE (17:36)
[2022-06-20] MEDS ORDERED: propofoL 200 MG/20 ML VIAL As Ordered ONE (17:36)
[2022-06-20] MEDS ORDERED: LIDOCAINE 2% 100MG/5ML SDV (FOR ANES.) As Ordered ONE (17:36)
[2022-06-20] MEDS ORDERED: fentaNYL 100 MCG/2 ML INJECTION As Ordered ONE (17:37)
[2022-06-20] MEDS ORDERED: AMPICILLIN SOD/SULBACTAM SOD 3 GM in D5W MINI-BAG PLUS 100 ML IV ONE (17:50)
[2022-06-20] MEDS ORDERED: UNASYN 3GM VIAL As Ordered ONE (17:51)
[2022-06-20] MEDS: SYMBICORT 160/4.5MCG INHALER 6GM INH SCH (20:22)
[2022-06-20] MEDS: SENNA 8.6 MG TAB (SENOKOT) NG SCH (20:32)
[2022-06-21 03:50] VITALS: BP 153/90
[2022-06-21] MEDS: SYMBICORT 160/4.5MCG INHALER 6GM INH SCH ×2 (07:12→19:08)
[2022-06-21 08:00] VITALS: BP 155/87
[2022-06-21] MEDS: THIAMINE 100 MG TAB NG SCH (08:39)
[2022-06-21] MEDS: DOCUSATE SOD LIQ 100MG/10ML UDC NG SCH ×2 (08:39→21:44)
[2022-06-21] MEDS: OMEPRAZOLE SUSPENSION 20MG 10ML ORAL SYRINGE PO SCH (09:35)
[2022-06-21 12:00] VITALS: BP 147/85
[2022-06-21] MEDS: SENNA 8.6 MG TAB (SENOKOT) NG SCH (21:44)
[2022-06-21 23:03] VITALS: BP 148/82
[2022-06-22] VITALS: O2SAT 90
[2022-06-22 05:00] VITALS: BP 135/74
[2022-06-22 06:00] VITALS: O2SAT 92
[2022-06-22] MEDS: SYMBICORT 160/4.5MCG INHALER 6GM INH SCH ×2 (07:22→19:30)
[2022-06-22] MEDS: DOCUSATE SOD LIQ 100MG/10ML UDC NG SCH ×2 (08:16→21:03)
[2022-06-22] MEDS: THIAMINE 100 MG TAB NG SCH (08:17)
[2022-06-22] MEDS: OMEPRAZOLE SUSPENSION 20MG 10ML ORAL SYRINGE PO SCH (08:17)
[2022-06-22 09:00] VITALS: O2SAT 91
[2022-06-22] MEDS: MOM 30ML SUSPENSION UDC PO SCH ×3 (09:23→17:47)
[2022-06-22] MEDS: SENOKOT S TAB PO SCH ×2 (09:23→21:03)
[2022-06-22] MEDS: SENNA 8.6 MG TAB (SENOKOT) NG SCH (21:03)
[2022-06-22 23:26] VITALS: O2SAT 95
[2022-06-23 05:30] VITALS: BP 144/75
[2022-06-23] MEDS: SYMBICORT 160/4.5MCG INHALER 6GM INH SCH ×2 (07:32→19:32)
[2022-06-23] MEDS: THIAMINE 100 MG TAB NG SCH (08:23)
[2022-06-23] MEDS: DOCUSATE SOD LIQ 100MG/10ML UDC NG SCH ×2 (08:23→20:32)
[2022-06-23] MEDS: OMEPRAZOLE SUSPENSION 20MG 10ML ORAL SYRINGE PO SCH (08:24)
[2022-06-23] MEDS: SENOKOT S TAB PO SCH ×2 (08:24→20:32)
[2022-06-23 19:33] VITALS: O2SAT 95
[2022-06-23] MEDS: SENNA 8.6 MG TAB (SENOKOT) NG SCH (20:32)
[2022-06-24 00:48] VITALS: O2SAT 97
[2022-06-24 05:40] VITALS: BP 124/58
[2022-06-24] MEDS: SYMBICORT 160/4.5MCG INHALER 6GM INH SCH ×2 (07:56→20:08)
[2022-06-24] MEDS: DOCUSATE SOD LIQ 100MG/10ML UDC NG SCH ×2 (08:38→21:07)
[2022-06-24] MEDS: ACETAMINOPHEN TAB 650MG DOSE (2X325MG) NG PRN (08:39)
[2022-06-24] MEDS: SENOKOT S TAB PO SCH ×2 (08:39→21:08)
[2022-06-24] MEDS: THIAMINE 100 MG TAB NG SCH (08:40)
[2022-06-24] MEDS: OMEPRAZOLE SUSPENSION 20MG 10ML ORAL SYRINGE PO SCH (08:40)
[2022-06-24 10:33] LABS: BASO % 0.1 % (0.0-1.0); EOS # 0.3 10^3/uL (0.0-0.5); EOS % 2.6 % (0.0-3.0); HEMATOCRIT 34.9 % (36.0-47.0); HEMOGLOBIN 10.4 g/dl (12.0-15.5); LYMPH # 1.4 10^3/uL (1.5-5.0); LYMPH % 14.3 % (24.0-44.0); MEAN CORPUSCULAR HEMOGLOBIN 30.9 pg (27.0-33.0); MEAN CORPUSCULAR HGB CONC 29.8 g/dl (32.0-36.5); MEAN CORPUSCULAR VOLUME 103.6 fl (80.0-96.0); MONO # 0.8 10^3/uL (0.0-0.8); MONO % 8.1 % (2.0-8.0); NEUTROPHILS # 7.4 10^3/uL (1.5-8.5); NEUTROPHILS % 74.5 % (36.0-66.0); PLATELET COUNT, AUTOMATED 215 10^3/uL (150-450); RED BLOOD COUNT 3.37 10^6/uL (4.00-5.40)
[2022-06-24 10:38] LABS: ERYTHROCYTE SEDIMENTATION RATE 39 mm/hr (0-30)
[2022-06-24] MEDS ORDERED: FLEET ENEMA PR ONE (11:00)
[2022-06-24 11:07] LABS: ALBUMIN 2.5 G/DL (3.2-5.2); ALKALINE PHOSPHATASE 111 U/L (46-116); ALT/SGPT 43 U/L (7.0-40); AST/SGOT 25 U/L (<34); BILIRUBIN,TOTAL 0.2 MG/DL (0.3-1.2); BLOOD UREA NITROGEN 22 MG/DL (9-23); CALCIUM LEVEL 9.7 MG/DL (8.3-10.6); CARBON DIOXIDE LEVEL 26 MMOL/L (20-31); CHLORIDE LEVEL 110 MMOL/L (98-107); CREATININE FOR GFR 0.62 MG/DL (0.55-1.30); GLOMERULAR FILTRATION RATE > 60.0 (>45); GLUCOSE, FASTING 88 MG/DL (74-106); POTASSIUM SERUM 4.5 MMOL/L (3.5-5.1); SODIUM LEVEL 146 MMOL/L (136-145); TOTAL PROTEIN 5.4 G/DL (5.7-8.2)
[2022-06-24] MEDS: MOM 30ML SUSPENSION UDC PO PRN (15:32)
[2022-06-24] MEDS: SENNA 8.6 MG TAB (SENOKOT) NG SCH (21:09)
[2022-06-25 06:00] VITALS: BP 136/77
[2022-06-25 07:29] VITALS: O2SAT 93
[2022-06-25] MEDS: SYMBICORT 160/4.5MCG INHALER 6GM INH SCH ×2 (07:29→20:02)
[2022-06-25] MEDS ORDERED: MAGNESIUM CITRATE 300ML BTL PO ONE (09:00)
[2022-06-25] MEDS: THIAMINE 100 MG TAB NG SCH (09:10)
[2022-06-25] MEDS: DOCUSATE SOD LIQ 100MG/10ML UDC NG SCH ×2 (09:10→20:29)
[2022-06-25] MEDS: OMEPRAZOLE SUSPENSION 20MG 10ML ORAL SYRINGE PO SCH (09:11)
[2022-06-25] MEDS: SENOKOT S TAB PO SCH ×2 (09:11→20:30)
[2022-06-25] MEDS: SENNA 8.6 MG TAB (SENOKOT) NG SCH (20:29)
[2022-06-25] MEDS: MOM 30ML SUSPENSION UDC PO PRN (20:30)
[2022-06-25 23:56] VITALS: O2SAT 91
[2022-06-26] MEDS ORDERED: FLEET OIL RETENTION ENEMA PR ONE (05:00)
[2022-06-26 06:00] VITALS: BP 131/79
[2022-06-26] MEDS: SYMBICORT 160/4.5MCG INHALER 6GM INH SCH (07:30)
[2022-06-26] MEDS: DOCUSATE SOD LIQ 100MG/10ML UDC NG SCH (08:41)
[2022-06-26] MEDS: OMEPRAZOLE SUSPENSION 20MG 10ML ORAL SYRINGE PO SCH (08:41)
[2022-06-26] MEDS: THIAMINE 100 MG TAB NG SCH (08:41)
[2022-06-26] MEDS: SENOKOT S TAB PO SCH (08:41)
[2022-06-26] MEDS ORDERED: BISA10SU PR (10:07)
[2022-06-26] MEDS ORDERED: Sodium Chloride Nasal Spray (10:07)
[2022-06-26] MEDS ORDERED: DOCU10ELUD NG (10:07)
[2022-06-26] MEDS ORDERED: SYMB16INH INH (10:07)
[2022-06-26] MEDS ORDERED: SENN18TA NG (10:07)
[2022-06-26] MEDS ORDERED: MOM30SS2 PO (10:07)
[2022-06-26] MEDS ORDERED: MOUKOT60 MT (10:07)
[2022-06-26] MEDS ORDERED: THIA100TA NG (10:07)
[2022-06-26] MEDS ORDERED: COMBAER6 INH (10:07)
[2022-06-26] MEDS ORDERED: Omeprazole Suspension PO (10:07)
== END 2022-06-26 12:26 | DRG 951 ==
LOC: M ED 12:52 → M ED INP 16:28 → ENRESERV 17:15 → M PCU 18:18 → M MSPAV 05-30 19:06
PROVIDERS: ADMIT General Practice; ATTEND Internal Medicine Nephrology
PROC: 009U3ZX Drainage of Spinal Canal, Percutaneous Approach, Diagnostic (ICD-10-PCS; principal; 2022-06-04)
PROC: 0DH Gastrointestinal System, Insertion (ICD-10-PCS; 2022-06-20 14:30)
DX: G25.79 Other drug induced movement disorders (principal); J96.21 Acute and chronic respiratory failure with hypoxia; G72.81 Critical illness myopathy; N17.9 Acute kidney failure, unspecified; E87.0 Hyperosmolality and hypernatremia; I11.0 Hypertensive heart disease with heart failure; J44.1 Chronic obstructive pulmonary disease with (acute) exacerbation; R13.10 Dysphagia, unspecified; I50.32 Chronic diastolic (congestive) heart failure; E83.52 Hypercalcemia; E87.70 Fluid overload, unspecified; F20.2 Catatonic schizophrenia; F31.9 Bipolar disorder, unspecified; E78.5 Hyperlipidemia, unspecified; M81.0 Age-related osteoporosis without current pathological fracture; N39.0 Urinary tract infection, site not specified; R74.01 Elevation of levels of liver transaminase levels; K29.70 Gastritis, unspecified, without bleeding; M21.371 Foot drop, right foot; M21.372 Foot drop, left foot; R27.0 Ataxia, unspecified; R41.82 Altered mental status, unspecified; T43.8X5A Adverse effect of other psychotropic drugs, initial encounter; Z66 Do not resuscitate; Z87.891 Personal history of nicotine dependence; Z20.822 Contact with and (suspected) exposure to COVID-19; Z88.1 Allergy status to other antibiotic agents; Z88.2 Allergy status to sulfonamides; Z79.82 Long term (current) use of aspirin; Z79.899 Other long term (current) drug therapy

== ENCOUNTER → 2022-07-03 | Outpatient (REF) ==
[~2022-07-03] MED LIST changes: +ALEN70TA82 PO; +AMLO1TAB24 PO; +ATOR1TAB21 PO; +BISA10SU PR; +COMBAER6 INH; +DOCU10ELUD NG; +MOM30SS2 PO; +MOUKOT60 MT; +Omeprazole Suspension PO; +QUET200T2 PO; +SENN18TA NG; +SYMB16INH INH; +Sodium Chloride Nasal Spray; +THIA100TA NG
[2022-07-03 07:16] LABS: HEMATOCRIT 31.6 % (36.0-47.0); HEMOGLOBIN 9.5 g/dl (12.0-15.5); MEAN CORPUSCULAR HEMOGLOBIN 30.4 pg (27.0-33.0); MEAN CORPUSCULAR HGB CONC 30.1 g/dl (32.0-36.5); MEAN CORPUSCULAR VOLUME 101.3 fl (80.0-96.0); PLATELET COUNT, AUTOMATED 278 10^3/uL (150-450); RED BLOOD COUNT 3.12 10^6/uL (4.00-5.40); WHITE BLOOD COUNT 6.6 10^3/uL (4.0-10.0)
[2022-07-03 07:35] LABS: ALBUMIN 2.5 G/DL (3.2-5.2); ALKALINE PHOSPHATASE 102 U/L (46-116); ALT/SGPT 39 U/L (7.0-40); AST/SGOT 21 U/L (<34); BILIRUBIN,TOTAL < 0.2 MG/DL (0.3-1.2); BLOOD UREA NITROGEN 17 MG/DL (9-23); CALCIUM LEVEL 9.1 MG/DL (8.3-10.6); CARBON DIOXIDE LEVEL 25 MMOL/L (20-31); CHLORIDE LEVEL 109 MMOL/L (98-107); CREATININE FOR GFR 0.71 MG/DL (0.55-1.30); GLOMERULAR FILTRATION RATE > 60.0 (>45); GLUCOSE, FASTING 111 MG/DL (74-106); IRON (FE) 24 UG/DL (50-170); PERCENT SATURATION 8.5 % (13.2-45.0); POTASSIUM SERUM 3.8 MMOL/L (3.5-5.1); SODIUM LEVEL 143 MMOL/L (136-145); TOTAL IRON BINDING CAPACITY 282 UG/DL (250-425); TOTAL PROTEIN 5.5 G/DL (5.7-8.2)
[2022-07-03 07:36] LABS: FERRITIN 76.8 NG/ML (7.3-270.7)
== END ==
LOC: SKLAB7 07:00
PROVIDERS: ATTEND Internal Medicine
DX: D64.9 Anemia, unspecified (principal)

== ENCOUNTER → 2022-08-15 | Outpatient (REF) | payer MEDICARE, BC ==
[2022-08-15 14:56] LABS: BASO % 0.5 % (0.0-1.0); EOS # 0.1 10^3/uL (0.0-0.5); EOS % 1.3 % (0.0-3.0); HEMATOCRIT 34.7 % (36.0-47.0); HEMOGLOBIN 10.4 g/dl (12.0-15.5); LYMPH # 2.9 10^3/uL (1.5-5.0); LYMPH % 37.4 % (24.0-44.0); MEAN CORPUSCULAR HEMOGLOBIN 30.1 pg (27.0-33.0); MEAN CORPUSCULAR VOLUME 100.3 fl (80.0-96.0); MONO # 0.7 10^3/uL (0.0-0.8); MONO % 8.5 % (2.0-8.0); NEUTROPHILS # 4.1 10^3/uL (1.5-8.5); PLATELET COUNT, AUTOMATED 342 10^3/uL (150-450); RED BLOOD COUNT 3.46 10^6/uL (4.00-5.40); WHITE BLOOD COUNT 7.8 10^3/uL (4.0-10.0)
[2022-08-15 15:22] LABS: ALBUMIN 2.6 G/DL (3.2-5.2); BILIRUBIN,TOTAL 0.2 MG/DL (0.3-1.2); CALCIUM LEVEL 8.8 MG/DL (8.3-10.6); CREATININE FOR GFR 0.98 MG/DL (0.55-1.30); GLOMERULAR FILTRATION RATE 59.9 (>45); MAGNESIUM LEVEL 1.7 MG/DL (1.8-2.4); PERCENT SATURATION 9.1 % (13.2-45.0); POTASSIUM SERUM 3.9 MMOL/L (3.5-5.1); THYROID STIMULATING HORMONE 1.105 uIU/ML (0.55-4.78); TOTAL PROTEIN 6.2 G/DL (5.7-8.2)
[2022-08-15 15:23] LABS: FERRITIN 33.4 NG/ML (7.3-270.7); FOLATE 8.7 NG/ML (>5.4); TOTAL 25(OH) VITAMIN D 36.2 NG/ML (20.0-100.0)
[2022-08-15 16:35] LABS: HEMOGLOBIN A1c 4.7 % (4.0-6.0)
== END ==
LOC: M SFHCADAM 11:05
PROVIDERS: ATTEND Physician Assistant Medical
DX: D50.8 Other iron deficiency anemias (principal); E55.9 Vitamin D deficiency, unspecified; F31.9 Bipolar disorder, unspecified; I10 Essential (primary) hypertension; R73.01 Impaired fasting glucose

== ENCOUNTER → 2023-01-02 | Outpatient (REF) | payer MEDICARE, BC ==
[~2023-01-02] MED LIST changes: +SENN-111 NG; -SENN18TA NG
[2023-01-02 17:59] LABS: HEMOGLOBIN A1c 5.5 % (4.0-6.0)
[2023-01-02 18:12] LABS: FERRITIN 63.9 NG/ML (7.3-270.7); FOLATE 5.6 NG/ML (>5.4); THYROID STIMULATING HORMONE 1.723 uIU/ML (0.55-4.78); TOTAL 25(OH) VITAMIN D 30.3 NG/ML (20.0-100.0)
[2023-01-02 18:17] LABS: VITAMIN B12 LEVEL 1378 PG/ML (211-911)
[2023-01-02 18:19] LABS: HEMATOCRIT 35.6 % (36.0-47.0); HEMOGLOBIN 11.2 g/dl (12.0-15.5); MEAN CORPUSCULAR HEMOGLOBIN 30.4 pg (27.0-33.0); MEAN CORPUSCULAR HGB CONC 31.5 g/dl (32.0-36.5); MEAN CORPUSCULAR VOLUME 96.5 fl (80.0-96.0); PLATELET COUNT, AUTOMATED 279 10^3/uL (150-450); RED BLOOD COUNT 3.69 10^6/uL (4.00-5.40); WHITE BLOOD COUNT 6.7 10^3/uL (4.0-10.0)
[2023-01-02 18:20] LABS: ALBUMIN 3.7 G/DL (3.2-5.2); ALKALINE PHOSPHATASE 102 U/L (46-116); ALT/SGPT 33 U/L (7.0-40); AST/SGOT 20 U/L (<34); BILIRUBIN,TOTAL < 0.2 MG/DL (0.3-1.2); BLOOD UREA NITROGEN 16 MG/DL (9-23); CALCIUM LEVEL 9.7 MG/DL (8.3-10.6); CARBON DIOXIDE LEVEL 26 MMOL/L (20-31); CHLORIDE LEVEL 106 MMOL/L (98-107); CHOLESTEROL LEVEL 179 MG/DL (<200); CHOLESTEROL RISK RATIO 3.37 (<5); CREATININE FOR GFR 1.47 MG/DL (0.55-1.30); GLOMERULAR FILTRATION RATE 37.5 (>45); GLUCOSE, FASTING 79 MG/DL (74-106); IRON (FE) 61 UG/DL (50-170); LDL CHOLESTEROL 66.4 MG/DL (<100); MAGNESIUM LEVEL 1.8 MG/DL (1.8-2.4); PERCENT SATURATION 18.2 % (13.2-45.0); POTASSIUM SERUM 4.5 MMOL/L (3.5-5.1); SODIUM LEVEL 141 MMOL/L (136-145); TOTAL IRON BINDING CAPACITY 335 UG/DL (250-425); TRIGLYCERIDES LEVEL 298 MG/DL (<150)
[2023-01-02 20:14] LABS: BASO # 0.1 10^3/uL (0.0-0.2); BASO % 1.1 % (0.0-1.0); EOS # 0.2 10^3/uL (0.0-0.5); EOS % 3.2 % (0.0-3.0); LYMPH # 2.7 10^3/uL (1.5-5.0); LYMPH % 41.7 % (24.0-44.0); MONO # 0.5 10^3/uL (0.0-0.8); MONO % 7.6 % (2.0-8.0); NEUTROPHILS % 45.9 % (36.0-66.0)
[2023-01-02 20:21] LABS: ATYPICAL LYMPH 18 % (0-5); BASOPHILS 3 % (0-1); EOSINOPHILS 4 % (0-3); LYMPHOCYTES 28 % (16-44); MONOCYTES 1 % (0-5); NEUTROPHILS 44 % (28-66); PLATELET ESTIMATE NORMAL (NORMAL)
== END ==
LOC: M SFHCADAM 14:52
PROVIDERS: ATTEND Physician Assistant Medical
DX: I10 Essential (primary) hypertension (principal); E55.9 Vitamin D deficiency, unspecified; E51.9 Thiamine deficiency, unspecified; Z79.899 Other long term (current) drug therapy

== ENCOUNTER → 2023-09-25 | Outpatient (CLI) | payer BC, OTHER | LOC: M RAD 14:28 | PROVIDERS: ATTEND Internal Medicine Critical Care Medicine | DX: Z12.2 Encounter for screening for malignant neoplasm of respiratory organs (principal); F17.218 Nicotine dependence, cigarettes, with other nicotine-induced disorders; I70.0 Atherosclerosis of aorta; I25.10 Atherosclerotic heart disease of native coronary artery without angina pectoris; K44.9 Diaphragmatic hernia without obstruction or gangrene; J43.2 Centrilobular emphysema; J47.9 Bronchiectasis, uncomplicated ==

== ENCOUNTER → 2023-10-03 | Outpatient (REF) | payer OTHER, BC ==
[2023-10-03 14:40] LABS: BASO # 0.1 10^3/uL (0.0-0.2); BASO % 0.7 % (0.0-1.0); EOS # 0.1 10^3/uL (0.0-0.5); EOS % 1.8 % (0.0-3.0); HEMATOCRIT 40.6 % (36.0-47.0); HEMOGLOBIN 12.4 g/dl (12.0-15.5); LYMPH % 28.3 % (24.0-44.0); MEAN CORPUSCULAR HEMOGLOBIN 30.5 pg (27.0-33.0); MEAN CORPUSCULAR HGB CONC 30.5 g/dl (32.0-36.5); MONO # 0.5 10^3/uL (0.0-0.8); MONO % 6.4 % (2.0-8.0); NEUTROPHILS # 4.5 10^3/uL (1.5-8.5); NEUTROPHILS % 62.5 % (36.0-66.0); PLATELET COUNT, AUTOMATED 318 10^3/uL (150-450); RED BLOOD COUNT 4.06 10^6/uL (4.00-5.40); WHITE BLOOD COUNT 7.2 10^3/uL (4.0-10.0)
[2023-10-03 14:56] LABS: HEMOGLOBIN A1c 4.8 % (4.0-6.0)
[2023-10-03 15:09] LABS: ALBUMIN 3.3 G/DL (3.2-5.2); BILIRUBIN,TOTAL 0.2 MG/DL (0.3-1.2); CALCIUM LEVEL 9.5 MG/DL (8.3-10.6); CHOLESTEROL RISK RATIO 3.23 (<5); LDL CHOLESTEROL 72.8 MG/DL (<100); MAGNESIUM LEVEL 2.1 MG/DL (1.8-2.4); PERCENT SATURATION 25.2 % (13.2-45.0); POTASSIUM SERUM 4.8 MMOL/L (3.5-5.1); TOTAL PROTEIN 6.9 G/DL (5.7-8.2)
[2023-10-03 15:10] LABS: THYROID STIMULATING HORMONE 1.9 uIU/ML (0.55-4.78)
[2023-10-03 15:11] LABS: TOTAL 25(OH) VITAMIN D 38.8 NG/ML (20.0-100.0)
[2023-10-04 12:32] LABS: CREATININE FOR GFR 1.53 MG/DL (0.55-1.30); GLOMERULAR FILTRATION RATE 35.7 (>39)
== END ==
LOC: M SFHCADAM 08:13
PROVIDERS: ATTEND Physician Assistant Medical
DX: D50.8 Other iron deficiency anemias (principal); E55.9 Vitamin D deficiency, unspecified; R73.01 Impaired fasting glucose; E07.9 Disorder of thyroid, unspecified; E78.00 Pure hypercholesterolemia, unspecified

== ENCOUNTER → 2023-10-17 | Outpatient (CLI) | payer BC, OTHER | LOC: M PLAIMG 13:21 | PROVIDERS: ATTEND Physician Assistant Medical | DX: I50.32 Chronic diastolic (congestive) heart failure (principal); R00.0 Tachycardia, unspecified; I35.8 Other nonrheumatic aortic valve disorders ==

== ENCOUNTER 2024-02-18 13:57 | Inpatient (IN) | payer BC, OTHER ==
[~2024-02-18] VITALS: Ht 152.4 cm; Wt 62.0 kg
[~2024-02-18 13:57] MED LIST changes: +LITH450T11 PO; -LITH45TASA PO; -SENN-111 NG; +SENN-165 NG
[2024-02-18 15:34] LABS: BASO % 0.1 % (0.0-1.0); EOS % 0.1 % (0.0-3.0); HEMATOCRIT 38.8 % (36.0-47.0); HEMOGLOBIN 12.7 g/dl (12.0-15.5); LYMPH # 1.8 10^3/uL (1.5-5.0); LYMPH % 15.4 % (24.0-44.0); MEAN CORPUSCULAR HGB CONC 32.7 g/dl (32.0-36.5); MEAN CORPUSCULAR VOLUME 91.7 fl (80.0-96.0); MONO # 0.6 10^3/uL (0.0-0.8); MONO % 4.6 % (2.0-8.0); NEUTROPHILS # 9.4 10^3/uL (1.5-8.5); PLATELET COUNT, AUTOMATED 325 10^3/uL (150-450); RED BLOOD COUNT 4.23 10^6/uL (4.00-5.40); WHITE BLOOD COUNT 11.9 10^3/uL (4.0-10.0)
[2024-02-18 16:21] LABS: LIPASE 34 U/L (12-53)
[2024-02-18 16:44] LABS: ALBUMIN 2.6 G/DL (3.2-5.2); ALKALINE PHOSPHATASE 178 U/L (35-104); ALT/SGPT 80 U/L (7.0-40); AST/SGOT 96 U/L (<34); BILIRUBIN,DIRECT 0.4 MG/DL (<0.4); BILIRUBIN,TOTAL 0.7 MG/DL (0.3-1.2); BLOOD UREA NITROGEN 26 MG/DL (9-23); CALCIUM LEVEL 9.7 MG/DL (8.3-10.6); CARBON DIOXIDE LEVEL 25 MMOL/L (20-31); CHLORIDE LEVEL 101 MMOL/L (98-107); CREATININE FOR GFR 1.86 MG/DL (0.55-1.30); GLOMERULAR FILTRATION RATE 28.5 (>39); GLUCOSE, FASTING 109 MG/DL (74-106); POTASSIUM SERUM 2.7 MMOL/L (3.5-5.1); SODIUM LEVEL 134 MMOL/L (136-145); TOTAL PROTEIN 6.7 G/DL (5.7-8.2)
[2024-02-18] MEDS ORDERED: OMEP-173 PO (17:41)
[2024-02-18] MEDS ORDERED: THIA100TA PO (17:41)
[2024-02-18] MEDS ORDERED: B-12100021 PO (17:45)
[2024-02-18] MEDS ORDERED: D200CAP3 PO (17:45)
[2024-02-18] MEDS ORDERED: GABA-1171 PO (17:45)
[2024-02-18] MEDS ORDERED: QUET50TA4 PO ×2 (17:45)
[2024-02-18] MEDS ORDERED: FERR1TAB8 PO (17:45)
[2024-02-18] MEDS: POTASSIUM CHLORIDE 10MEQ SR TABLET PO ONE (17:45)
[2024-02-18] MEDS ORDERED: MELATAB3 PO (17:45)
[2024-02-18] MEDS: KCL 10MEQ/100ML SWI (KRUN) 10 MEQ in IV 1 EA IV ONE (17:45)
[2024-02-18] MEDS ORDERED: VENTAER INH (17:46)
[2024-02-18] MEDS ORDERED: HOME MED LIST COMPLETE! XX SCH (17:50)
[2024-02-18 19:59] LABS: HEPATITIS B SURFACE ANTIGEN NEGATIVE (NEGATIVE)
[2024-02-18 20:18] LABS: HEPATITIS C VIRUS ABY INDEX 0.09 INDEX (<0.8)
[2024-02-18 20:19] LABS: HEPATITIS B CORE ANTIBODY IGM NEGATIVE (NEGATIVE); VITAMIN B12 LEVEL > 2000 PG/ML (211-911)
[2024-02-18] MEDS ORDERED: MOM 30ML SUSPENSION UDC PO PRN (20:35)
[2024-02-18] MEDS ORDERED: ALBUTEROL 90 MCG/ACT 8GM HFA INHALER INH PRN (20:35)
[2024-02-18] MEDS: DOCUSATE SODIUM 100MG CAPSULE PO SCH (21:00)
[2024-02-18] MEDS ORDERED: GABAPENTIN 100 MG CAP PO SCH (21:00)
[2024-02-18 21:14] LABS: CHOLESTEROL LEVEL 124 MG/DL (<200); CHOLESTEROL RISK RATIO 2.25 (<5); CPK CREATINE PHOSPHOKINASE 815 U/L (34-145); HDL CHOLESTEROL 54.9 MG/DL (>40); LDL CHOLESTEROL 28.9 MG/DL (<100); NON-HDL-C 69.1 MG/DL; TRIGLYCERIDES LEVEL 201 MG/DL (<150)
[2024-02-18] MEDS: POTASSIUM CHLORIDE 10MEQ SR TABLET PO SCH (21:16)
[2024-02-18 21:17] LABS: FOLATE 2.96 NG/ML (>5.4); THYROID STIMULATING HORMONE 0.074 uIU/ML (0.55-4.78)
[2024-02-18] MEDS: ATORVASTATIN 20 MG TAB PO SCH (21:17)
[2024-02-18] MEDS: RAMELTEON 8 MG TAB (ROZEREM) PO SCH (21:17)
[2024-02-18] MEDS: QUEtiapine FUMARATE 100 MG TAB PO SCH (21:18)
[2024-02-18] MEDS: LR 1,000 ML IV SCH (21:25)
[2024-02-18 21:40] LABS: ERYTHROCYTE SEDIMENTATION RATE 41 mm/hr (0-30)
[2024-02-18 22:58] LABS: HEMOGLOBIN A1c 5.6 % (4.0-6.0)
[2024-02-18] MEDS: FOLIC ACID 1MG TAB PO SCH (23:34)
[2024-02-19 00:55] LABS: FREE T4 1.06 NG/DL (0.89-1.76)
[2024-02-19] MEDS ORDERED: FOLIC ACID 1 MG in NS 50 ML IV SCH (01:00)
[2024-02-19] MEDS: CEFDINIR 300 MG CAP (OMNICEF) PO SCH (01:04)
[2024-02-19 01:27] VITALS: BP 130/85; TEMP 97.5; O2SAT 93
[2024-02-19] MEDS: ACETAMINOPHEN 325 MG TAB PO PRN (01:53)
[2024-02-19 04:10] VITALS: BP 108/56; TEMP 97.2; O2SAT 94
[2024-02-19] MEDS: HEPARIN SOD (PORCINE) 5000UNITS/ML 1ML VIAL/SYRINGE SC SCH (06:05)
[2024-02-19 06:45] LABS: HEMATOCRIT 31.3 % (36.0-47.0); MEAN CORPUSCULAR HEMOGLOBIN 29.2 pg (27.0-33.0); MEAN CORPUSCULAR HGB CONC 31.3 g/dl (32.0-36.5); MEAN CORPUSCULAR VOLUME 93.2 fl (80.0-96.0); PLATELET COUNT, AUTOMATED 240 10^3/uL (150-450); RED BLOOD COUNT 3.36 10^6/uL (4.00-5.40); WHITE BLOOD COUNT 7.1 10^3/uL (4.0-10.0)
[2024-02-19 06:52] LABS: HEMOGLOBIN 9.8 g/dl (12.0-15.5)
[2024-02-19 07:21] LABS: ALBUMIN 1.9 G/DL (3.2-5.2); BILIRUBIN,TOTAL 0.5 MG/DL (0.3-1.2); CALCIUM LEVEL 8.7 MG/DL (8.3-10.6); CREATININE FOR GFR 1.77 MG/DL (0.55-1.30); GLOMERULAR FILTRATION RATE 30.2 (>39); MAGNESIUM LEVEL 1.8 MG/DL (1.8-2.4); POTASSIUM SERUM 4.4 MMOL/L (3.5-5.1); TOTAL PROTEIN 5.1 G/DL (5.7-8.2)
[2024-02-19] MEDS: ASPIRIN 81MG ENTERIC TABLET PO SCH (08:39)
[2024-02-19] MEDS: VITAMIN D 1,000 INTERNATIONAL UNITS TABLET PO SCH (08:39)
[2024-02-19] MEDS: FERROUS SULFATE 325MG TAB PO SCH (08:40)
[2024-02-19] MEDS: GABAPENTIN 100 MG CAP PO SCH (08:40)
[2024-02-19] MEDS: QUEtiapine FUMARATE 50MG TAB PO SCH (08:40)
[2024-02-19] MEDS: OMEPRAZOLE 20MG CAP PO SCH (08:40)
[2024-02-19] MEDS: THIAMINE 100 MG TAB PO SCH (08:40)
[2024-02-19] MEDS: CYANOCOBALAMIN 500 MCG TAB PO SCH (08:40)
[2024-02-19] MEDS: amLODIPine 5 MG TAB PO SCH (08:43)
[2024-02-19 12:00] VITALS: BP 118/74; TEMP 97.5; O2SAT 97
[2024-02-19] MEDS: LORazepam 2 MG/ML 1ML VIAL IV ONE (14:32)
[2024-02-19] MEDS ORDERED: LORazepam 0.5 MG TAB PO PRN (17:20)
[2024-02-19 20:00] VITALS: BP 120/75; TEMP 97.5; O2SAT 91
[2024-02-20 03:40] VITALS: BP 114/71; TEMP 97.7; O2SAT 90
[2024-02-20 05:51] LABS: HEMATOCRIT 32.6 % (36.0-47.0); MEAN CORPUSCULAR HEMOGLOBIN 29.6 pg (27.0-33.0); MEAN CORPUSCULAR HGB CONC 30.7 g/dl (32.0-36.5); MEAN CORPUSCULAR VOLUME 96.4 fl (80.0-96.0); PLATELET COUNT, AUTOMATED 224 10^3/uL (150-450); RED BLOOD COUNT 3.38 10^6/uL (4.00-5.40)
[2024-02-20 06:15] LABS: CK-MB VALUE MASS 4.2 NG/ML (<3.6)
[2024-02-20 06:16] LABS: MB/CK RELATIVE INDEX 2.1 (< OR =4)
[2024-02-20 06:17] LABS: BILIRUBIN,TOTAL 0.3 MG/DL (0.3-1.2); CALCIUM LEVEL 9.1 MG/DL (8.3-10.6); CREATININE FOR GFR 1.53 MG/DL (0.55-1.30); GLOMERULAR FILTRATION RATE 35.6 (>39); POTASSIUM SERUM 4.6 MMOL/L (3.5-5.1); TOTAL PROTEIN 5.3 G/DL (5.7-8.2)
[2024-02-20] MEDS ORDERED: COLA100C5 PO (10:32)
[2024-02-20] MEDS ORDERED: CEFD300CAP PO (10:32)
[2024-02-20 12:00] VITALS: BP 115/88; TEMP 97.3; O2SAT 93
[2024-02-20] MEDS: LEVALBUTEROL 1.25MG 0.5ML CONCENTRATE NEB NEB PRN (12:59)
[2024-02-20] MEDS ORDERED: METO1TAB87 PO (14:37)
[2024-02-20 14:47] VITALS: BP 120/89
[2024-02-20] MEDS: METOPROLOL TART 12.5 MG PER 1/2 TAB PO SCH (14:47)
== END 2024-02-20 17:19 | disposition home health service (06) | DRG 463 ==
LOC: M ED 13:57 → M ED INP 20:35 → M MSPAV 02-19 01:12
PROVIDERS: ADMIT Student in an Organized Health Care Education/Training Program; ATTEND Internal Medicine
DX: N39.0 Urinary tract infection, site not specified (principal); N17.9 Acute kidney failure, unspecified; J44.9 Chronic obstructive pulmonary disease, unspecified; M62.82 Rhabdomyolysis; B96.89 Other specified bacterial agents as the cause of diseases classified elsewhere; N18.30 Chronic kidney disease, stage 3 unspecified; I12.9 Hypertensive chronic kidney disease with stage 1 through stage 4 chronic kidney disease, or unspecified chronic kidney disease; E78.5 Hyperlipidemia, unspecified; F31.9 Bipolar disorder, unspecified; M81.0 Age-related osteoporosis without current pathological fracture; E04.1 Nontoxic single thyroid nodule; K21.9 Gastro-esophageal reflux disease without esophagitis; R53.1 Weakness; R55 Syncope and collapse; R74.01 Elevation of levels of liver transaminase levels; D50.9 Iron deficiency anemia, unspecified; G47.00 Insomnia, unspecified; E87.6 Hypokalemia; Z66 Do not resuscitate; Z79.82 Long term (current) use of aspirin; Z79.899 Other long term (current) drug therapy; Z88.2 Allergy status to sulfonamides; Z88.1 Allergy status to other antibiotic agents; Z87.891 Personal history of nicotine dependence